=== PATIENT | female | born 1965 | race Caucasian/White ===

== ENCOUNTER 2021-02-20 15:22 | Emergency (ER) | payer MEDICAID, SELFPAY ==
[2021-02-20 15:32] VITALS: BP 133/88; PULSE 108; RESP 16; TEMP 36.8; O2SAT 97; BMI 20.6
--- NOTE | 2021-02-20 15:34 | ECG_ITS ---
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 Measurements Intervals [place] Rate: 108 P: 59 AK: 151 QRS: -15 QRSD: 90 T: 51 QT: 336 QTc: 452 Interpretive Statements SINUS TACHYCARDIA POSSIBLE LEFT ATRIAL ENLARGEMENT [-0.1mV P-WAVE IN V1/V2] ABNORMAL RHYTHM ECG No previous ECG available for comparison Electronically Signed On 02-21-2021 19:53:30 RETAIL MARKETING SPECIALIST by Rene Low M.D. [id number]
--- NOTE | 2021-02-20 15:34 | XRR_ITS ---
PROCEDURE INFORMATION: Exam: XR Chest Exam date and time: 02/20/2021 3:34 PM Age: 55 years old Clinical indication: Pain; Angina pectoris; Additional info: Chest pain TECHNIQUE: Imaging protocol: XR of the chest. Views: 1 view. COMPARISON: No relevant prior studies available. FINDINGS: Lungs: Unremarkable. No consolidation. Pleural spaces: Unremarkable. No pleural effusion. No pneumothorax. Heart/Mediastinum: Unremarkable. No cardiomegaly. Bones/joints: Unremarkable. XR/XR chest 1V portable [id number] IMPRESSION: No acute findings.
--- NOTE | 2021-02-20 15:47 | CTR_ITS ---
PROCEDURE INFORMATION: Exam: CTA Chest With Contrast Exam date and time: 02/20/2021 3:47 PM Age: 55 years old Clinical indication: Sternal or substernal pain; Additional info: Chest pain/sharp pain TECHNIQUE: Imaging protocol: Computed tomographic angiography of the chest with contrast. 3D rendering (Not supervised by radiologist): MIP and/or 3D reconstructed images were created by the technologist. Radiation optimization: All CT scans at this facility use at least one of these dose optimization techniques: automated exposure control; mA and/or kV adjustment per patient size (includes targeted exams where dose is matched to clinical indication); or iterative reconstruction. Contrast material: OMNI 350; Contrast volume: 71 ml; Contrast route: INTRAVENOUS (IV); COMPARISON: CR XR chest 1V portable [id number] 02/20/2021 4:05 PM RADIATION DOSE METRICS: Total DLP (mGy-cm): 517.11 FINDINGS: Pulmonary arteries: Normal. No pulmonary emboli. Aorta: Unremarkable. No aortic aneurysm. No aortic dissection. Lungs: Bibasilar atelectasis versus minimal infiltrate. Lingular lobe 15 mm nodular density contacting the anterior pleura with some suspected internal calcifications, potentially reflecting a calcified granuloma, however, other etiologies are not excluded. Pleural spaces: See Lungs finding. Heart: Coronary artery atherosclerotic calcifications. Lymph nodes: Unremarkable. No enlarged lymph nodes. Gallbladder and bile ducts: Cholecystectomy. Bones/joints: L1 vertebral body somewhat diffusely sclerotic bony lesion, finding potentially concerning for metastatic disease, consider further evaluation with nuclear medicine bone scan. Soft tissues: Spleen mildly enlarged measuring [address]/CT angio chest PE protcl [id number] IMPRESSION: 1. Negative for pulmonary embolus. 2. Coronary artery atherosclerotic calcifications. 3. Cholecystectomy. 4. Bibasilar atelectasis versus minimal infiltrate. 5. Lingular lobe 15 mm nodular density contacting the anterior pleura with some suspected internal calcifications, potentially reflecting a calcified granuloma, however, other etiologies are not excluded. For both low risk and high risk patients, consider CT Chest at 3 months, PET/CT, or biopsy. (Reference: Leatha) 6. L1 vertebral body somewhat diffusely sclerotic bony lesion, finding potentially concerning for metastatic disease, consider further evaluation with nuclear medicine bone scan. 7. Spleen mildly enlarged measuring 13 cm. REFERENCES: Leahta Aceves et al. Guidelines for Management of Incidental Pulmonary Nodules Detected on CT Images: From the Fleischner Society 2017. Radiology. 2017;284(1):228-243.
--- NOTE | 2021-02-20 16:02 | W.ED.GENADLT ---
HPI - General Adult General: Chief complaint: Chest Pain Stated complaint: CHEST PAIN, HEADACHE Time Seen by Provider: 02/20/21 15:34 History of Present Illness: HPI narrative: CC: Chest Pain HPI: This is a [55] yo patient w/ family hx of cardiac disease and aortic aneurysm presenting to the ED complaining of acute sharp chest pain x 3 days radiating from between the shoulder blades to the chest and abdomen. No associated with shortness of breath, chest pain or dyspnea on exertion. Pain is not tearing in nature and does not radiate to the back. Pain not associated with vomiting or PO intake. Denies any recent sympathomimetic drug use. Patient denies any cough. Denies palpitations, dysphagia, diaphoresis, radiation of pain to bilateral arms, jaw. Denies F/N/V/D. Patient denies any recent immobility, surgery, unilateral leg swelling, or prior PE. Patient denies any orthopnea. Patient reported mild diarrhea x 1 day., Around the same time of the chest pain started, patient has had frontal headache. This is not worst headache of life and sudden in onset. Did not reach maximal intensity gradually. Onset: 3 days ago Duration: ongoing for the last 3 days Location: home Severity: mild/moderate Associated symptoms: Reports chest pain and headache(s); Deny dyspnea, nausea, rash, palpitations or vomiting Review of Systems Const: Denies: fever(s) or chills Eyes: Denies: change in vision ENMT: Denies: mouth pain Card: Reports: chest pain; Denies: palpitations Resp: Denies: dyspnea or non-productive cough GI: Denies: abdominal pain, nausea, vomiting or diarrhea : Denies: dysuria Musc: Denies: extremity pain Skin/Breast: Denies: rash or new lesions Neuro: Reports: headache(s); Denies: weakness in extremities Psych: Reports: other (Normal mood) Chepe/Lymph: Denies: easy bruising PFSH ED PFSH: Family History Other Aortic aneurysm CAD (coronary artery disease) Social History Smoking and tobacco status: never smoked Alcohol intake: never Substance/Drug Use: never Physical Exam Const: COMMON NORMALS: alert HENMT: COMMON NORMALS: atraumatic HEAD & SCALP: atraumatic MOUTH: moist mucous membranes not abnormal Eye: COMMON NORMALS: EOMs intact bilaterally and conjunctivae normal CONJUNCTIVA: Yes conjunctivae normal Neck/C-Spine: COMMON NORMALS: full ROM and supple Chest: OTHER: 2+ radial pulses b/l Resp: COMMON NORMALS: normal respiratory effort and clear to auscultation bilaterally AUSCULTATION: clear to auscultation bilaterally Cardio: COMMON NORMALS: regular rate RATE: regular rate GI: COMMON NORMALS: Soft to palpation and non-tender PALPATION: Yes Soft to palpation Extremity: COMMON NORMALS: full ROM Neuro: SENSORIUM/ORIENTATION: Yes alert MOTOR EXAM: 5/5 motor strength present throughout, Pronator motor function not present, No Abnormal motor strength present, No Tremors during motor activity present, No Abnormal muscle tone present and Other motor observations present (no focal motor deficits) Psych: COMMON NORMALS: speech normal SPEECH: Yes normal speech MOOD & AFFECT: Yes euthymic mood Course Vital Signs: Vital signs: Vital Signs Temperature 98.3 F 02/20/21 15:32 Pulse Rate 105 H 02/20/21 21:52 Respiratory Rate 22 H 02/20/21 21:52 Blood Pressure 186/102 02/20/21 21:52 Pulse Oximetry 96 02/20/21 21:52 MDM - General Adult MDM Narrative: Medical decision making narrative: [55]yo patient w/ family hx of cardiac and fx of aortic aneurym presenting to the ED with evaluation of new onset sharp chest pain lasting for 3 days. HDS, pulse 2+ radially bilaterally, no signs of fluid overload, AAOx3, neuro exam intact. Given History and Exam today I have no suspicion for ACS, Pneumothorax, Pneumonia, or Tamponade. Since pain is sharp and radiating from back to the front and patient has fx of aortic dissection, will evaluate for PE and aortic dissection. Headache unlike to be SAH or meningitis given presentation. Given ongoing pain, will treat today. Will defer CT brain. Workup: ECG, CXR, CBC, BMP, Troponin x 2, CTA Interventions: tylenol, IVF, benadryl, magnesium Findings: ECG: No overt evidence of STEMI, hyperacute T waves, localizable STD or T wave inversions. No evidence of Brugada?s sign, delta wave, epsilon wave, significantly prolonged QTc, or malignant arrhythmia. No Q waves. Other Labs unremarkable for emergent problems. CXR: Without PTX, PNA, or widened mediastinum Last Stress Test: never Last Heart Catheterization: never HEART Score: 3 (EKG, family hx, and age) Doubt ACS/PE or other emergent causes of chest pain. No suspicion for aortic dissection given no widened mediastinum, 2+ upper extremity pulses, or tearing pain. No suspicion for PE given no pleuritic chest pain, recent immobilization or surgery hemoptysis, or other VTE risk factors. EKG is non-ischemic. XR normal. This patient has a heart score of 3, I believe that she can be a candidate for outpatient work-up at this point time. Given patient to follow-up with cardiology for outpatient stress test and patient agrees with plan for outpatient stress. Delta troponin wnl, no active chest pain currently. Headache improved with migraine cocktail. No supsicion for SAH or meningitis at this time given well appearance, reassuring white count, CT brain negative, and no acute onset of headache. I have given patient follow up with our behavioral health case manager to be seen by outpatient Cardiology for stress test. Patient aware of a call from our behavioral health case manager to schedule for appointment(s) and verbalizes understanding of the importance of following up. Incidental findings of L1 sclerotic lesions and L lingular mass on CTA discussed extensively with patient. Patient received a copy of the CT report with the documented findings. Patient is instructed to follow up urgently with specialists. I have given patient follow up with our behavioral health case manager to be seen by Dr. Ortiz for new cancer workup. Patient aware of a call from our behavioral health case manager to schedule for appointment(s) and verbalizes understanding of the importance of following up. I have given patient follow up with our behavioral health case manager to be seen by our outpatient pulmonology for lingula lesions. Patient aware of a call from our behavioral health case manager to schedule for appointment(s) and verbalizes understanding of the importance of following up. Rx tylenol PRN prn pain Disposition: Discharge. Strict return precautions discussed with the patient with full understanding. Advised patient to follow up promptly with a primary care provider in 24-48 hrs if the patient has persistent symptoms. Given return instructions for any crushing/tearing chest pain, focal weakness, syncope or any new or concerning issues. Lab Data: Labs: Lab Results 02/20/21 02/20/21 02/20/21 15:18 15:18 15:18 WBC 7.7 10^3/uL 10^3/ uL (4.0-10.0) RBC 5.46 10^6/uL H 10 ^6/uL (4.1-5.3) Hgb 15.7 g/dL H g/dL (11.5-15.3) Hct 48.7 % H % (37.0-47.0) MCV 89.2 fl fl (81-99) MCH 28.8 pg pg (28.0-34.0) MCHC 32.2 g/dL g/dL (30.0-36.0) RDW 13.5 % % (12.1-15.1) Plt Count 248 10^3/cmm 10^3 /cmm (130-400) MPV 8.7 fL fL (7.4-10.4) Neut % (Auto) 70.4 % % Lymph % (Auto) 23.5 % % [place] % (Auto) 5.1 % % Eos % (Auto) 0.5 % % Baso % (Auto) 0.4 % % Neut # (Auto) 5.38 10^3/uL 10^3 /uL (1.8-7.7) Lymph # (Auto) 1.8 10^3/uL 10^3/ uL (0.8-4.8) [place] # (Auto) 0.4 10^3/uL 10^3/ uL (0.2-0.9) Eos # (Auto) 0.0 10^3/uL 10^3/ uL (0.0-0.8) Baso # (Auto) 0.0 10^3/uL 10^3/ uL (0.0-0.1) Nucleated RBC % (a uto) 0 % % Nucleated RBCs # 0.0 /100WBC /100W BC Sodium 134 mmol/L L mmol /L (136-145) Potassium 4.4 mmol/L mmol/L (3.5-5.1) Chloride 97 mmol/L L mmol/ L (98-107) Carbon Dioxide 24 mmol/L mmol/L (22-29) Anion Gap 17.4 (5-19) BUN 9 mg/dL mg/dL (6-20) Creatinine 0.7 mg/dL mg/dL (0.5-0.9) GFR Calculation 86.9 mL/min L mL/ min (90-130) Glucose 86 mg/dL mg/dL (65-115) Calculated Osmolal ity 276 mOsm/kg L mOs m/kg (285-295) Calcium 9.9 mg/dL mg/dL (8.5-10.5) Troponin T Baselin e 12 ng/L H ng/L (0-10) Troponin T 120 Min taisha Delta Troponin T Coronavirus 229E ( PCR) SARS-CoV-2 (PCR) 02/20/21 02/20/21 17:11 17:14 WBC RBC Hgb Hct MCV MCH MCHC RDW Plt Count MPV Neut % (Auto) Lymph % (Auto) [place] % (Auto) Eos % (Auto) Baso % (Auto) Neut # (Auto) Lymph # (Auto) [place] # (Auto) Eos # (Auto) Baso # (Auto) Nucleated RBC % (a uto) Nucleated RBCs # Sodium Potassium Chloride Carbon Dioxide Anion Gap BUN Creatinine GFR Calculation Glucose Calculated Osmolal ity Calcium Troponin T Baselin e Troponin T 120 Min taisha 11.18 ng/L H ng/L (0-10) Delta Troponin T -0.82 ABS# L ABS# (0-10) Coronavirus 229E ( PCR) Not detected (NOT DETECT) SARS-CoV-2 (PCR) Not detected (NOT DETECT) Imaging Data^: Other Imaging: Radiologist's impression: [address] [address] Scan ReportSigned Patient: No FOLEY #: [id number]: 1965Acct#:[id number]/Sex: 55 / FADM Date: 02/20/21Loc: ERRoom/Bed:Attending Dr: Ordering Provider/Ordering MD: Sara Sotelo MD Date of Service: 02/20/21 Procedure(s): CT angio chest PE protcl [id number] Accession Number(s): [id number] Report Number: [id number] PROCEDURE INFORMATION: Exam: CTA Chest With Contrast Exam date and time: 02/20/2021 3:47 PM Age: 55 years old Clinical indication: Sternal or substernal pain; Additional info: Chest pain/sharp pain TECHNIQUE: Imaging protocol: Computed tomographic angiography of the chest with contrast. 3D rendering (Not supervised by radiologist): MIP and/or 3D reconstructed images were created by the technologist. Radiation optimization: All CT scans at this facility use at least one of these dose optimization techniques: automated exposure control; mA and/or kV adjustment per patient size (includes targeted exams where dose is matched to clinical indication); or iterative reconstruction. Contrast material: OMNI 350; Contrast volume: 71 ml; Contrast route: INTRAVENOUS (IV); COMPARISON: CR XR chest 1V portable [id number] 02/20/2021 4:05 PM RADIATION DOSE METRICS: Total DLP (mGy-cm): 517.11 FINDINGS: Pulmonary arteries: Normal. No pulmonary emboli. Aorta: Unremarkable. No aortic aneurysm. No aortic dissection. Lungs: Bibasilar atelectasis versus minimal infiltrate. Lingular lobe 15 mm nodular density contacting the anterior pleura with some suspected internal calcifications, potentially reflecting a calcified granuloma, however, other etiologies are not excluded. Pleural spaces: See Lungs finding. Heart: Coronary artery atherosclerotic calcifications. Lymph nodes: Unremarkable. No enlarged lymph nodes. Gallbladder and bile ducts: Cholecystectomy. Bones/joints: L1 vertebral body somewhat diffusely sclerotic bony lesion, finding potentially concerning for metastatic disease, consider further evaluation with nuclear medicine bone scan. Soft tissues: Spleen mildly enlarged measuring [address]/CT angio chest PE protcl [id number] IMPRESSION: 1. Negative for pulmonary embolus. 2. Coronary artery atherosclerotic calcifications. 3. Cholecystectomy. 4. Bibasilar atelectasis versus minimal infiltrate. 5. Lingular lobe 15 mm nodular density contacting the anterior pleura with some suspected internal calcifications, potentially reflecting a calcified granuloma, however, other etiologies are not excluded. For both low risk and high risk patients, consider CT Chest at 3 months, PET/CT, or biopsy. (Reference: Leatha) 6. L1 vertebral body somewhat diffusely sclerotic bony lesion, finding potentially concerning for metastatic disease, consider further evaluation with nuclear medicine bone scan. 7. Spleen mildly enlarged measuring 13 cm. REFERENCES: Leatha Aceves, et al. Guidelines for Management of Incidental Pulmonary Nodules Detected on CT Images: From the Fleischner Society 2017. Radiology. 2017;284(1):228-243. Dictated By:Newton Steven MDSigned By:Newton Steven MDSigned Date/Time:02/20/21 1823DD/ 1547 [address], [place] [address]KI Scan ReportSigned Patient: No FOLEY #: [id number]: 1965Acct#:[id number]/Sex: 55 / FADM Date: 02/20/21Loc: ERRoom/Bed:Attending Dr: Ordering Provider/Ordering MD: Sara Sotelo MD Date of Service: 02/20/21 Procedure(s): CT head wo con* [id number] Accession Number(s): [id number] Report Number: [id number] PROCEDURE INFORMATION: Exam: CT Head Without Contrast Exam date and time: 02/20/2021 6:29 PM Age: 55 years old Clinical indication: Pain; Headache; Additional info: Eval for mets. SU x 3 days. TECHNIQUE: Imaging protocol: Computed tomography of the head without contrast. Radiation optimization: All CT scans at this facility use at least one of these dose optimization techniques: automated exposure control; mA and/or kV adjustment per patient size (includes targeted exams where dose is matched to clinical indication); or iterative reconstruction. COMPARISON: No relevant prior studies available. RADIATION DOSE METRICS: Total DLP (mGy-cm): 645.36 FINDINGS: Brain: Normal. No hemorrhage. Unremarkable white matter. No mass effect. Cerebral ventricles: No ventriculomegaly. Paranasal sinuses: Visualized sinuses are unremarkable. No fluid levels. Mastoid air cells: Visualized mastoid air cells are well aerated. Bones/joints: Unremarkable. No acute fracture. Soft tissues: Unremarkable. CT/CT head wo con* [id number] IMPRESSION: No acute intracranial abnormality. Dictated By:Newton Steven MDSigned By:Newton Steven MDSigned Date/Time:02/20/215DD/ [address] [place], [place] [address]MUms ReportSigned Patient: No FOLEY #: [id number]: 1965Acct#:[id number]/Sex: 55 / FADM Date: 02/20/21Loc: ERRoom/Bed:Attending Dr: Ordering Provider/Ordering MD: Sara Sotelo MD Date of Service: 02/20/21 Procedure(s): XR chest 1V portable [id number] Accession Number(s): [id number] Report Number: [id number] PROCEDURE INFORMATION: Exam: XR Chest Exam date and time: 02/20/2021 3:34 PM Age: 55 years old Clinical indication: Pain; Angina pectoris; Additional info: Chest pain TECHNIQUE: Imaging protocol: XR of the chest. Views: 1 view. COMPARISON: No relevant prior studies available. FINDINGS: Lungs: Unremarkable. No consolidation. Pleural spaces: Unremarkable. No pleural effusion. No pneumothorax. Heart/Mediastinum: Unremarkable. No cardiomegaly. Bones/joints: Unremarkable. XR/XR chest 1V portable [id number] IMPRESSION: No acute findings. Dictated By:Newton Steven MDSigned By:Newton Steven MDSigned Date/Time:02/20/21 1613DD/ 1534 Discharge Plan Discharge Patient Disposition: Home Clinical Impression: Headache, Chest pain Condition: Stable Prescriptions: New Zofran 4 mg tablet 4 mg PO TID PRN (Reason: nausea and vomiting) 4 Days Qty: 12 RF: 0 Percocet 5-325 mg tablet 1 tab PO Q8H PRN (Reason: pain) Qty: 9 RF: 0 Discharge Orders: Discharge ED (Routine); Ordered 02/20/21 Ordered By: Sara Sotelo Discharge Diet: Advance as tolerated Discharge Activity: Resume usual activity Patient Instructions: Chest Pain (ED), Acute Headache (ED) Activity Restrictions/Additional Instructions: Our behavioral health case manager will have you follow-up with a greenhouse transplanter in the next few days. You would be expected to have a phone call with our behavioral health case manager who will put you on the schedule. Our behavioral health case manager will have you follow-up with a cancer doctor in the next few days. You would be expected to have a phone call with our behavioral health case manager who will put you on the schedule. Our behavioral health case manager will have you follow-up with a milanese knitting machine operator in the next few days. You would be expected to have a phone call with our behavioral health case manager who will put you on the schedule. Here's your CT rpeort [facility] CenterHkirxogkin[address] [place], [place] [address]OE Scan ReportSigned Patient: No FOLEY #: [id number]: 1965Acct#:[id number]/Sex: 55 / FADM Date: 02/20/21Loc: ERRoom/Bed:Attending Dr: Ordering Provider/Ordering MD: Sara Sotelo MD Date of Service: 02/20/21 Procedure(s): CT angio chest PE protcl [id number] Accession Number(s): [id number] Report Number: [id number] PROCEDURE INFORMATION: Exam: CTA Chest With Contrast Exam date and time: 02/20/2021 3:47 PM Age: 55 years old Clinical indication: Sternal or substernal pain; Additional info: Chest pain/sharp pain TECHNIQUE: Imaging protocol: Computed tomographic angiography of the chest with contrast. 3D rendering (Not supervised by radiologist): MIP and/or 3D reconstructed images were created by the technologist. Radiation optimization: All CT scans at this facility use at least one of these dose optimization techniques: automated exposure control; mA and/or kV adjustment per patient size (includes targeted exams where dose is matched to clinical indication); or iterative reconstruction. Contrast material: OMNI 350; Contrast volume: 71 ml; Contrast route: INTRAVENOUS (IV); COMPARISON: CR XR chest 1V portable [id number] 02/20/2021 4:05 PM RADIATION DOSE METRICS: Total DLP (mGy-cm): 517.11 FINDINGS: Pulmonary arteries: Normal. No pulmonary emboli. Aorta: Unremarkable. No aortic aneurysm. No aortic dissection. Lungs: Bibasilar atelectasis versus minimal infiltrate. Lingular lobe 15 mm nodular density contacting the anterior pleura with some suspected internal calcifications, potentially reflecting a calcified granuloma, however, other etiologies are not excluded. Pleural spaces: See Lungs finding. Heart: Coronary artery atherosclerotic calcifications. Lymph nodes: Unremarkable. No enlarged lymph nodes. Gallbladder and bile ducts: Cholecystectomy. Bones/joints: L1 vertebral body somewhat diffusely sclerotic bony lesion, finding potentially concerning for metastatic disease, consider further evaluation with nuclear medicine bone scan. Soft tissues: Spleen mildly enlarged measuring [address]/CT angio chest PE protcl [id number] IMPRESSION: 1. Negative for pulmonary embolus. 2. Coronary artery atherosclerotic calcifications. 3. Cholecystectomy. 4. Bibasilar atelectasis versus minimal infiltrate. 5. Lingular lobe 15 mm nodular density contacting the anterior pleura with some suspected internal calcifications, potentially reflecting a calcified granuloma, however, other etiologies are not excluded. For both low risk and high risk patients, consider CT Chest at 3 months, PET/CT, or biopsy. (Reference: Leatha) 6. L1 vertebral body somewhat diffusely sclerotic bony lesion, finding potentially concerning for metastatic disease, consider further evaluation with nuclear medicine bone scan. 7. Spleen mildly enlarged measuring 13 cm. REFERENCES: Leatha H, et al. Guidelines for Management of Incidental Pulmonary Nodules Detected on CT Images: From the Fleischner Society 2017. Radiology. 2017;284(1):228-243. Dictated By:Newton Steven MDSigned By:Newton Steven MDSigned Date/Time:02/20/21 1823DD/ 1547 Coding Level of Care Code ED Bereavement Counselor for Chg Fwd Exam Comprehensive
[2021-02-20 16:24] LABS: Basophils % 0.4 %; Eosinophils % 0.5 %; Hematocrit 48.7 % (37.0-47.0); Hemoglobin 15.7 g/dL (11.5-15.3); Lymphocytes # 1.8 10^3/uL (0.8-4.8); Lymphocytes % 23.5 %; Mean Corpuscular HGB Conc 32.2 g/dL (30.0-36.0); Mean Corpuscular Hemoglobin 28.8 pg (28.0-34.0); Mean Corpuscular Volume 89.2 fl (81-99); Mean Platelet Volume 8.7 fL (7.4-10.4); Monocytes # 0.4 10^3/uL (0.2-0.9); Monocytes % 5.1 %; Neutrophils # 5.38 10^3/uL (1.8-7.7); Neutrophils % 70.4 %; Nucleated Red Blood Cells % 0 %; Platelet Count 248 10^3/cmm (130-400); Red Blood Count 5.46 10^6/uL (4.1-5.3); Red Cell Distribution Width 13.5 % (12.1-15.1); White Blood Count 7.7 10^3/uL (4.0-10.0)
[2021-02-20 16:56] LABS: Anion Gap 17.4 (5-19); Blood Urea Nitrogen 9 mg/dL (6-20); Calcium 9.9 mg/dL (8.5-10.5); Carbon Dioxide 24 mmol/L (22-29); Chloride 97 mmol/L (98-107); Glomerular Filtration Rate 86.9 mL/min (90-130); Glucose 86 mg/dL (65-115); Osmolality Calculated 276 mOsm/kg (285-295); Potassium 4.4 mmol/L (3.5-5.1); Sodium 134 mmol/L (136-145)
[2021-02-20 17:04] LABS: Slide Review Slide Review Perform
[2021-02-20 17:20] LABS: Troponin(5th) Baseline 12 ng/L (0-10)
[2021-02-20] MEDS: sodium chloride 0.9% 1,000 ML 999 ML IV ×2 (17:44)
[2021-02-20] MEDS: ondansetron 2 mg/ML SDV 2 mL 4 MG IVP (17:44)
[2021-02-20] MEDS: diphenhydrAMINE 50 mg/mL SDV 1mL IVP (17:44)
[2021-02-20] MEDS: morphine 4 mg/mL SDV 1 mL 2 MG IVP (17:45)
[2021-02-20] MEDS: magnesium sulfate premix 2 GM/50 ML PIGGYBACK IV (17:45)
[2021-02-20] MEDS: iohexol 350 mg/mL 100 mL Btl IV (18:11)
--- NOTE | 2021-02-20 18:29 | CTR_ITS ---
PROCEDURE INFORMATION: Exam: CT Head Without Contrast Exam date and time: 02/20/2021 6:29 PM Age: 55 years old Clinical indication: Pain; Headache; Additional info: Eval for mets. SU x 3 days. TECHNIQUE: Imaging protocol: Computed tomography of the head without contrast. Radiation optimization: All CT scans at this facility use at least one of these dose optimization techniques: automated exposure control; mA and/or kV adjustment per patient size (includes targeted exams where dose is matched to clinical indication); or iterative reconstruction. COMPARISON: No relevant prior studies available. RADIATION DOSE METRICS: Total DLP (mGy-cm): 645.36 FINDINGS: Brain: Normal. No hemorrhage. Unremarkable white matter. No mass effect. Cerebral ventricles: No ventriculomegaly. Paranasal sinuses: Visualized sinuses are unremarkable. No fluid levels. Mastoid air cells: Visualized mastoid air cells are well aerated. Bones/joints: Unremarkable. No acute fracture. Soft tissues: Unremarkable. CT/CT head wo con* [id number] IMPRESSION: No acute intracranial abnormality.
[2021-02-20 19:16] LABS: Adenovirus Not Detected (NOT DETECT); Chlamydia Pneumoniae Not Detected (NOT DETECT); Coronavirus 229E,HKU1,NL63,OC4 Not Detected (NOT DETECT); Human Metapneumovirus Not Detected (NOT DETECT); Human Rhinovirus/Enterovirus Not Detected (NOT DETECT); Influenza A Not Detected (NOT DETECT); Influenza A H1 Not Detected (NOT DETECT); Influenza A H1-2009 Not Detected (NOT DETECT); Influenza A H3 Not Detected (NOT DETECT); Influenza B Not Detected (NOT DETECT); Mycoplasma Pneumoniae Not Detected (NOT DETECT); Parainfluenza Virus Type 1 Not Detected (NOT DETECT); Parainfluenza Virus Type 2 Not Detected (NOT DETECT); Parainfluenza Virus Type 3 Not Detected (NOT DETECT); Parainfluenza Virus Type 4 Not Detected (NOT DETECT); Respiratory Syncytial Virus A Not Detected (NOT DETECT); Respiratory Syncytial Virus B Not Detected (NOT DETECT); SARS-COV-2 Not Detected (NOT DETECT)
[2021-02-20 19:37] VITALS: BP 168/108; RESP 20; O2SAT 96
[2021-02-20 20:14] LABS: Troponin 5 2HR 11.18 ng/L (0-10); Troponin 5 2HR Delta -0.82 ABS# (0-10)
[2021-02-20 20:30] VITALS: BP 186/102; PULSE 105; RESP 22; O2SAT 96
[2021-02-20] MEDS: ketorolac 30 mg/mL INJ IVP (21:40)
[2021-02-20 21:52] VITALS: BP 186/102; PULSE 105; RESP 22; O2SAT 96
--- NOTE | 2021-02-22 15:35 | DCPLANNER ---
manager medicaid had message to schedule an out patient stress test for patient. manager medicaid needed to speak with patient due to not having a primary care physician listed in chart. manager medicaid was unable to speak with patient due to no phone number for patient in chart.
--- NOTE | 2021-02-22 15:43 | DCPLANNER ---
Addendum entered by Chiara Desai 02/26/21 06:21: bed manager also had message to refer patient with [facility]. bed manager unable to make referral due to not having a phone number or an address for patient in chart. Original Note: Case manger had message to refer patient Dr. Ortiz for possible new cancer patient. bed manager cannot make referral due to not having a phone number or address in the chart.
--- NOTE | 2021-02-28 14:35 | DCPLANNER ---
Patient called shoe parts caser stating that she did not have a phone number in her chart, and gave shoe parts caser phone number. locker room manager called patient, asking if she still wanted the referrals for primary care physician, and pulmonology, and cancer treatment center. Patient stated that she did. locker room manager called [facility], spoke with Mariaelena, gave clinic patients information. A follow up appointment was scheduled for Friday, March 05, 2021 at 9:[address] Leung. locker room manager called patient and gave her the appointment information. locker room manager called [facility], spoke with Shavonne, gave clinic patients information. A follow up appointment was scheduled for Tuesday, March 16, 2021 at 10:[address] Kemp, pulmonology. locker room manager called patient and gave her the appointment information. locker room manager also called Blanca, breastfeeding program coordinator, [facility], gave clinic patients information. locker room manager was told that patients information would be watched for and an appointment would be scheduled for patient. locker room manager did call patient and let her know that the Cancer Treatment would call patient with appointment information.
== END 2021-02-20 21:58 | disposition home or self-care (01) ==
LOC: ER 17:49
PROVIDERS: Emergency Provider Emergency Medicine
DX: R07.9 Chest pain, unspecified (principal); R51.9 Headache, unspecified; Z20.822 Contact with and (suspected) exposure to COVID-19
CPT/HCPCS: 36415; 70450; 71045; 71275; 80048; 84484; 85025; 87635; 93005; 96361; 96365; 96375; 99284; J1200; J1885; J2270; J2405; J3475; J7030; Q9967

== ENCOUNTER → 2021-05-08 15:13 | Outpatient (BNVA) | payer BC, SELFPAY | PROVIDERS: PCP Family Medicine Adult Medicine; Visit Provider Family Medicine Adult Medicine | DX: R63.4 Abnormal weight loss (principal); F41.9 Anxiety disorder, unspecified; F32.A Depression, unspecified; R11.0 Nausea; R91.1 Solitary pulmonary nodule | CPT/HCPCS: 84443 ==

== ENCOUNTER 2021-07-13 10:59 | Outpatient (CLI) | payer BC, SELFPAY ==
--- NOTE | 2021-07-13 15:06 | CT_ITS ---
WS: [id number] CT CHEST WITHOUT INTRAVENOUS CONTRAST HISTORY: f/u lung nodules TECHNIQUE: Contiguous 5 mm axial imaging performed on the thorax. Coronal and sagittal reformats are submitted. All CT scans at [facility] use at least one of these dose optimization techniques: automated exposure control; mA and/or kV adjustment per patient size (includes targeted exams where dose is matched to clinical indication); or iterative reconstruction. CONTRAST: None DLP: 471.41 mGy-cm. COMPARISON: 02/20/2021 and PET/CT 03/29/2021 Lungs and central airway: Previously described PET/CT positive activity in the RIGHT lung has resolve d. There is no corresponding abnormality on today's examination. The lungs are hyperinflated and ther e are a few additional areas of subsolid opacification and a few subcentimeter nodules which are all probably stable. Pleura: Normal. No pleural effusion. Heart and pericardium: Normal size heart with no pericardial effusion. Mediastinum and randy: Mediastinum and randy are difficult to evaluate without IV contrast but no gross ly enlarged or enlarging lymph nodes are appreciated. Vessels: Very minimal atherosclerosis aorta. Normal size pulmonary artery. Chest wall and lower neck: No soft tissue masses. Upper abdomen: Prior cholecystectomy. Visualized unenhanced liver and spleen are negative. No adrenal mass. Osseous structures: Moderate spondylosis thoracic spine. Heterogeneity within the L1 vertebral body. Sclerotic and lytic changes in the lumbar L1 vertebral body are very similar to the prior study from 02/20/2021. May be from treated bone lesion. Patient does describe a history of cancer within her back . No additional history. CT/CT chest wo con [id number] IMPRESSION: 1. Interval resolution of the recently described PET/CT positive infiltrate in the RIGHT lung consistent with pneumonia. 2. Additional, bilateral areas of subsolid attenuation and subcentimeter nodul es. Recommend follow-up chest CT in 6 months. 3. Chronic emphysema.
== END 2021-07-13 11:00 | disposition home or self-care (01) ==
PROVIDERS: PCP Family Medicine Adult Medicine; Visit Provider Internal Medicine Pulmonary Disease
DX: J18.9 Pneumonia, unspecified organism (principal); R63.4 Abnormal weight loss; R91.8 Other nonspecific abnormal finding of lung field; J43.9 Emphysema, unspecified
CPT/HCPCS: 71250

== ENCOUNTER 2021-07-27 11:06 | Outpatient (CLI) | payer BC, SELFPAY ==
--- NOTE | 2021-07-27 11:16 | MM_ITS ---
WS: [id number] SCREENING DIGITAL BREAST TOMOSYNTHESIS MAMMOGRAM WITH CAD HISTORY: SCREEN COMPARISON: None available. Bilateral CC and MLO with tomosynthesis views submitted. Synthetic mammography reviewed. Computer aid ed detection analyzed. Breast composition: There are scattered areas of fibroglandular density. No suspicious masses, microc alcifications or architectural distortion. MM/[place] [id number] IMPRESSION: BI-RADS: 1-Negative FOLLOW UP: 1 Year Follow-up
== END 2021-07-27 11:07 | disposition home or self-care (01) ==
PROVIDERS: PCP Family Medicine Adult Medicine; Visit Provider Family Medicine Adult Medicine
DX: Z12.31 Encounter for screening mammogram for malignant neoplasm of breast (principal)
CPT/HCPCS: 77063; 77067

== ENCOUNTER 2021-09-13 10:02 | Outpatient (CLI) | payer BC, SELFPAY ==
--- NOTE | 2021-09-13 13:04 | PFTS_ITS ---
Date of Study:09/13/21 Date of Dictation: MECHANICS: Forced vital capacity (FVC) is normal. Forced expiratory volume in one second (FEV1) is normal. FEV1/FVC is normal. FLOW VOLUME LOOP: There is some flattening of the inspiratory limb of the flow volume loop which could be suggestive of variable extrathoracic airflow obstruction. LUNG VOLUMES: Total lung capacity (TLC) is normal. Residual volume (RV) is increased. DIFFUSING CAPACITY FOR CARBON MONOXIDE: Not measured. INTERPRETATION: The prebronchodilator spirometry is normal. No postbronchodilator spirometry was performed. Lung volumes are consistent with air trapping. Gas exchange (DLCO) was not measured. MTDD
== END 2021-09-13 10:03 | disposition home or self-care (01) ==
PROVIDERS: PCP Family Medicine Adult Medicine; Visit Provider Internal Medicine Pulmonary Disease
DX: J44.9 Chronic obstructive pulmonary disease, unspecified (principal); R91.1 Solitary pulmonary nodule
CPT/HCPCS: 94010; 94618; 94726

== ENCOUNTER 2021-09-19 06:00 | Day surgery (SDC) | payer BC, SELFPAY | END 2021-09-19 06:01 | disposition home or self-care (01) | LOC: GILAB 12-06 07:21 | PROVIDERS: PCP Family Medicine Adult Medicine; Visit Provider Surgery | DX: R63.4 Abnormal weight loss (principal) | CPT/HCPCS: J2704 ==

== ENCOUNTER 2021-09-19 07:58 | Day surgery (SDC) | payer BC, SELFPAY ==
[2021-09-18 09:48] VITALS: BMI 16.8
[2021-09-19 08:20] VITALS: BP 122/82; PULSE 96; RESP 18; TEMP 36.1; O2SAT 100
[2021-09-19] MEDS: sodium chloride 0.9% 1,000 ML 30 ML IV (08:30)
--- NOTE | 2021-09-19 09:10 | ANES.PREANE2 ---
Pre-Anesthetic Assessment Height/Weight: Height 1.65 m Weight 45.813 kg Temp Pulse Resp BP Pulse Ox O2 Del Method 97 F L 96 18 122/82 100 09/19/21 08:20 09/19/21 08:20 09/19/21 08:20 09/19/21 08:20 09/19/21 08:20 09/19/21 08:20 Preop Diagnosis: diagnostic Operation Date: 09/19/21 09:15 Proposed Procedures p EGD 52123, 09332, R63.4(Not Applicable) - Chandu Pandey MD s Colonoscopy(Not Applicable) - Chandu Pandey MD Familial anesthetic complications: hard to wake up Was Beta Jumana taken within 24 hours: N/A Was Clonidine taken within 24 hours: N/A Last intake: Intake Last Liquid Date 09/18/21 Last Liquid Time 23:30 Last Solid Date 09/16/21 Last Solid Time 00:00 Last Intake: 23:30 Social Tobacco 0.5ppd pack(s) per day 20+ pack years Exam alert, oriented x 3, clear to auscultation bilaterally and regular rate & rhythm Airway Submandibular: within normal limits Cervical ROM: within normal limits Mallampati: Class II Dentition: full (chipped front upper) Pulmonary Chronic Obstructive Pulmonary Disease, Cough, Exertional Dyspnea and Shortness of Breath lung nodule CV/HEM None reported None reported Hepatic None reported GI Gastroesophageal Reflux Disease Metabolic None reported Musc/skel Lower Back Pain (tumor L1) and Osteoarthritis/DJD Neuropsych Anxiety and Depression Anesthetic Plan ASA status: 3 Anesthesia: MAC Medications/Allergies Home Medications Medication Instructions Recorded Confirmed Last Taken Type albuterol sulfate 90 mcg/actuation 2 puff inhalation Q6H PRN 04/03/21 09/19/21 09/18/21 Rx aerosol inhaler shortness of breath or wheezing #17 grams ondansetron 4 mg disintegrating 4 mg PO Q6H PRN nausea and 04/03/21 09/19/21 09/17/21 Rx tablet vomiting #90 tabs budesonide-formoterol HFA 160 2 puff inhalation BID #10.2 grams 07/10/21 09/19/21 09/18/21 Rx mcg-4.5 mcg/actuation aerosol inhaler (Symbicort) celecoxib 200 mg capsule 200 mg PO BID #60 caps 08/07/21 09/19/2109/18/22 Rx hydroxyzine HCl 50 mg tablet 50 mg PO TID PRN anxiety #90 tabs 08/07/21 09/19/21 09/18/21 Rx Allergies Allergy/AdvReac Type Severity Reaction Status Date / Time No Known Allergies Allergy Verified 09/18/21 09:47 Current Medications Generic Name Dose Route Start Last Admin Trade Name Freq PRN Reason Stop Dose Admin Sodium Chloride 1,000 mls @ 30 mls/hr 09/19/21 08:15 09/19/21 08:30 Sodium Chloride 0.9% IV 09/20/21 08:14 30 mls/hr .Q24H TAMMY Administration PFSH Anesthesia Medical History 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 Anxiety and depression Incidental lung nodule Mid back pain, chronic Pneumonia Quit smoking Surgical History History of hysterectomy History of tonsillectomy Status post colonoscopy Family History Other Aortic aneurysm CAD (coronary artery disease) Social History Smoking and tobacco status: current every day smoker cigarettes Packs smoked per day: 1 Years cigarettes smoked: 23 Alcohol intake: never Adopted: Yes (by grandparents) Lives independently: Yes Household members: none Housing: House Marital status: Legally Number of children: 0 Number of grandchildren: 0 Highest education level completed: Some College, No Degree service: No Current occupational status: other 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
[2021-09-19 09:45] VITALS: BP 111/72; PULSE 95; RESP 18; TEMP 36.3; O2SAT 99
--- NOTE | 2021-09-19 09:47 | P.HP_ITS ---
Same Day Surgery H&P Indication for Procedure/HPI DATE OF PROCEDURE: September 19, 2021 CHIEF COMPLAINT/INDICATIONFOR SURGICAL PROCEDURE: egd/colon PREOP DIAGNOSIS: diagnostic PLANNED PROCEDURE: Operation Date: 09/19/21 09:15 Proposed Procedures p EGD 08501, [id number], R63.4(Not Applicable) - Chandu Pandey MD s Colonoscopy(Not Applicable) - Chandu Pandey MD Medications/Allergies* Allergies/Adverse Reactions Allergy/AdvReac Type Severity Reaction Status Date / Time No Known Allergies Allergy Verified 09/18/21 09:47 Current Medications: Generic Name Dose Route Start Last Admin Trade Name Freq PRN Reason Stop Dose Admin Sodium Chloride 1,000 mls @ 30 mls/hr 09/19/21 08:15 09/19/21 08:30 Sodium Chloride 0.9% IV 09/20/21 08:14 30 mls/hr .Q24H TAMMY Administration Pertinent History/Comorbid Conditions* Medical History 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 Anxiety and depression Incidental lung nodule Mid back pain, chronic Pneumonia Quit smoking Surgical History (Updated 05/28/21 @ 15:43 by Chandu Pandey MD) History of hysterectomy History of tonsillectomy Status post colonoscopy Family History (Updated 02/20/21 @ 16:03 by Sara Sotelo MD) CAD (coronary artery disease) Aortic aneurysm Social History Smoking and tobacco status: current every day smoker cigarettes Packs smoked per day: 1 Years cigarettes smoked: 23 Alcohol intake: never Adopted: Yes (by grandparents) Lives independently: Yes Household members: none Housing: House Marital status: Legally Number of children: 0 Number of grandchildren: 0 Highest education level completed: Some College, No Degree service: No Current occupational status: other 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
[2021-09-19] MEDS: ondansetron 2 mg/ML SDV 2 mL 4 MG IVP (10:15)
[2021-09-19 10:27] VITALS: BP 126/89; PULSE 86; RESP 18; O2SAT 100
--- NOTE | 2021-09-19 17:54 | ANE.PACU2 ---
Inpatient post-anesthesia follow up: Airway intact: Yes Vital signs: Temperature 97.3 F Pulse Rate 86 Respiratory Rate 18 Blood Pressure 126/89 Pulse Oximetry 100 Oxygen Delivery Me thod Room Air Oxygen Flow Rate 3 Fraction of Inspir ed Oxygen Hydration adequate: Yes Nausea and vomiting: No Pain level: 1 Mental status: Baseline
== END 2021-09-19 10:36 | disposition home or self-care (01) ==
PROVIDERS: PCP Family Medicine Adult Medicine; Visit Provider Surgery
PROC: 0DJ08ZZ Inspection of Upper Intestinal Tract, Via Natural or Artificial Opening Endoscopic (ICD-10-PCS; CPT 43235; principal; 2021-09-19 09:15)
PROC: 0DJD8ZZ Inspection of Lower Intestinal Tract, Via Natural or Artificial Opening Endoscopic (ICD-10-PCS; CPT 45330; 2021-09-19 09:15)
DX: R63.4 Abnormal weight loss (principal); Z68.1 Body mass index [BMI] 19.9 or less, adult; J44.9 Chronic obstructive pulmonary disease, unspecified; K21.9 Gastro-esophageal reflux disease without esophagitis; F17.210 Nicotine dependence, cigarettes, uncomplicated
CPT/HCPCS: 43235; 45330; 96374; J2405; J7030

== ENCOUNTER 2021-11-13 10:20 | Outpatient (CLI) | payer BC, SELFPAY ==
[2021-11-13] MEDS: iohexol 350 mg/mL 100 mL Btl IV (11:45)
[2021-11-13] MEDS: iohexol 350 mg/mL 100 mL Btl PO (11:45)
--- NOTE | 2021-11-13 12:30 | CT_ITS ---
WS: [id number] CT ABDOMEN AND PELVIS WITH CONTRAST HISTORY: R63.4 - Abnormal weight loss TECHNIQUE: Imaging performed of the abdomen and pelvis with IV contrast. Single phase imaging of the abdomen. Coronal and sagittal reformats are submitted. All CT scans at [facility] use at [address] one of these dose optimization techniques: automated exposure control; mA and/or kV adjustment per patient size (includes targeted exams where dose is matched to clinical indication); or iterative re construction. IV CONTRAST: Omnipaque 350; 95 mL IV. Oral contrast: No DLP: 791.24 mGy.cm COMPARISON: None available. Lower thorax: Lung bases are clear. Heart is normal size. No hiatal hernia. Liver/biliary system: Normal size with no intrahepatic dilatation. Gallbladder: Status post cholecystectomy. Pancreas: Normal size pancreas and pancreatic duct. No adjacent inflammation. Spleen: Top normal size at 12.0 cm in length. No mass. Adrenal glands: Normal. Right kidney: Normal. Left kidney: Cortical cyst upper pole measures 8 mm. No solid mass or obstruction. Aorta: Mild atherosclerosis with no aneurysm. Lymphadenopathy: None. Free fluid: None. GI tract: Stomach is well-distended with oral contrast. No small bowel obstruction. There is mild wal l thickening within the small bowel in the LEFT abdomen. There is mild central tethering of small bow el loops in the pelvis. No mass identified. Appendix is normal. There is extensive diffuse constipati on throughout the colon. Abdominal wall: Unremarkable abdominal wall. No hernia. Pelvis: Fecal retention towards the rectum. No free fluid or adenopathy. Prior hysterectomy. Bones: L4 anterolisthesis by 7 mm. L5 bilateral pars defects. Mild anterior wedging of L1. Sclerotic changes within the femoral heads bilaterally, RIGHT greater than LEFT. Mixed lytic and sclerotic lesi ons throughout the LEFT ilium. Mild sclerosis along the RIGHT SI joint. Abnormal signal in T12 may be hemangioma. CT/CT abdomen pelvis w con* [id number] IMPRESSION: 1. Abnormal mixed lytic and sclerotic changes within the LEFT ilium and to a l zofia extent on the SI joint and bilaterally in the hips. Thought to be related to osteonecrosis on a prior PET/CT. Extensive changes within the LEFT ilium ne ed further evaluation. Bone scan imaging may be very helpful to exclude metasta tic disease. No prior studies. Abnormal density in T12 may be due to a hemangio ma but metastatic disease is not excluded. 2. Prior cholecystectomy and hysterectomy. 3. Diffuse constipation. 4. There is mild small bowel wall thickening. This can be seen with inflammato ry/infectious or lymphoma. No ascites or adenopathy identified.
== END 2021-11-13 10:21 | disposition home or self-care (01) ==
LOC: RAD 10:22
PROVIDERS: PCP Family Medicine Adult Medicine; Visit Provider Surgery
DX: R63.4 Abnormal weight loss (principal); K59.00 Constipation, unspecified; Z90.710 Acquired absence of both cervix and uterus; Z90.49 Acquired absence of other specified parts of digestive tract
CPT/HCPCS: 74177

== ENCOUNTER 2021-12-25 07:43 | Outpatient (CLI) | payer BC, SELFPAY ==
--- NOTE | 2021-12-25 07:58 | NM_ITS ---
WS: [id number] NUCLEAR MEDICINE BONE SCAN Radiopharmaceutical: 18.6 Tc-99m MDP mCi IV Injection site: antecubital Postinjection imaging delay: 1 hr CLINICAL INFORMATION: abnormal illiac bone COMPARISON: PET/CT March 29, 2021 FINDINGS: Bone lesions: Diffuse bony uptake in the LEFT ilium adjacent to the sacroiliac joint corresponds to t he previously described bony lesion. In addition, bony uptake involving the T12 vertebral body more p rominent involving the posterior elements. Findings are nonspecific but metastatic disease should be excluded. Persistent activity in the RIGHT greater than LEFT femoral heads previously felt to be due to avascul ar necrosis, extends into the femoral necks bilaterally. Soft tissue contours: Normal. Kidneys: Normal. Other findings: None. NM/NM bone scan whole body* [id number] IMPRESSION: 1. Radiotracer uptake involving the LEFT ilium adjacent to sacroiliac joint an d T12 vertebral body nonspecific but metastatic disease not excluded. Consider CT-guided biopsy of the LEFT ilium for more definitive evaluation. 2. Previously described activity in the RIGHT greater than LEFT femoral head a nd necks previously described as avascular necrosis but technically indetermina nt and metastatic disease not entirely excluded. 3. Findings similar to the PET/CT March 29, 2021
== END 2021-12-25 07:44 | disposition home or self-care (01) ==
PROVIDERS: PCP Family Medicine Adult Medicine; Visit Provider Family Medicine Adult Medicine
DX: M87.9 Osteonecrosis, unspecified (principal)
CPT/HCPCS: 78306; A9561

== ENCOUNTER 2021-12-26 07:55 | Day surgery (SDC) | payer BC, SELFPAY ==
[2021-12-25 11:42] VITALS: BMI 16.9
[2021-12-26 08:23] VITALS: BP 152/102; PULSE 95; RESP 18; TEMP 36.1; O2SAT 98
[2021-12-26] MEDS: sodium chloride 0.9% 1,000 ML 30 ML IV (08:25)
--- NOTE | 2021-12-26 08:49 | ANES.PREANE2 ---
Pre-Anesthetic Assessment Height/Weight: Height 1.65 m Weight 46.266 kg Temp Pulse Resp BP Pulse Ox O2 Del Method 96.9 F L 95 18 152/102 98 12/26/21 08:23 12/26/21 08:23 12/26/21 08:23 12/26/21 08:23 12/26/21 08:23 12/26/21 08:23 Preop Diagnosis: Abdominal pain Operation Date: 12/26/21 09:30 Proposed Procedures p Colonoscopy /EGD 02585 [id number] R63.4.R11.0(Not Applicable) - Bry Jarvis MD s EGD(Not Applicable) - Bry Jarvis MD Familial anesthetic complications: Hard time to wake up Was Beta Jumana taken within 24 hours: N/A Was Clonidine taken within 24 hours: N/A Last intake: Intake Last Liquid Date 12/25/21 Last Liquid Time 22:00 Last Solid Date 12/25/21 Last Solid Time 09:30 Social Tobacco (Smokes marijuana daily) and No alcohol 0.5 pack(s) per day Exam alert, oriented x 3, clear to auscultation bilaterally and regular rate & rhythm Airway Submandibular: within normal limits Cervical ROM: Other (Decreased ROM) Mallampati: Class II Dentition: chipped, loose and partials Comments: Comments: Chipped teeth in front History/ROS No significant history except as noted and No significant complaints Pulmonary Chronic Obstructive Pulmonary Disease, Cough and Exertional Dyspnea Nodules on lungs CV/HEM None reported Cyst on left kidney Hepatic None reported GI Gastroesophageal Reflux Disease (None this AM) Mass in stomach on posterior wall from last scope Metabolic None reported Musc/skel Lower Back Pain (Tumor L1 ) Avascular necrosis Neuropsych Seizure (Stress related) Anesthetic Plan ASA status: 3 Anesthesia: Anesthesia Evaluation, General and MAC Risk of > 500 ml blood loss (7ml/kg in children): No Medications/Allergies Home Medications Medication Instructions Recorded Confirmed Last Taken Type budesonide 160 mcg-glycopyr 9 2 inh inhalation BID #10.7 grams 10/17/21 12/26/21 12/25/21 Rx mcg-formot 4.8 mcg/actuation HFA inhaler (Breztri Aerosphere) ipratropium 0.5 mg-albuterol 3 mg 3 ml inhalation Q4H PRN wheezing 10/17/21 12/26/2122 Rx (2.5 mg base)/3 mL nebulization #90 mL soln albuterol sulfate 90 mcg/actuation 2 puff inhalation Q6H PRN 10/25/21 12/26/21 12/25/21 Rx aerosol inhaler shortness of breath or wheezing #17 grams hydroxyzine HCl 50 mg tablet 50 mg PO TID PRN anxiety #90 tabs 10/25/21 12/26/21 12/25/21 Rx ondansetron 4 mg disintegrating 4 mg PO Q6H PRN nausea and 11/22/21 12/26/21 12/26/21 Rx tablet vomiting #90 tabs nebulizers #1 ea 12/04/21 12/26/21 12/25/21 Rx metoclopramide HCl 10 mg tablet 10 mg PO Q6H PRN nausea and 12/13/21 12/26/21 12/25/21 Rx (Reglan) vomiting #120 tabs pantoprazole 40 mg tablet,delayed 40 mg PO BID PRN nausea and 12/13/21 12/26/21 12/25/21 Rx release vomiting #60 tabs tramadol 50 mg tablet 50 mg PO Q8H PRN pain 30 days #60 12/21/21 12/26/21 12/25/21 Rx tabs Allergies Allergy/AdvReac Type Severity Reaction Status Date / Time No Known Allergies Allergy Verified 12/26/21 08:22 Current Medications Generic Name Dose Route Start Last Admin Trade Name Freq PRN Reason Stop Dose Admin Sodium Chloride 1,000 mls @ 30 mls/hr 12/26/21 08:30 12/26/21 08:25 Sodium Chloride 0.9% IV 30 mls/hr .Q24H TAMMY Administration PFSH Anesthesia Medical History (Updated 12/21/21 @ 16:21 by Gabriel Leung MD) 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 Anxiety and depression Bone necrosis Gastric mass Greenstick mass on the posterior wall of the stomach on EGD by Dr. Pandey 09/19/[address] of the abdomen pelvis with p.o. and IV contrast ordered GERD (gastroesophageal reflux disease) Incidental lung nodule Mid back pain, chronic Surgical History History of hysterectomy History of tonsillectomy Status post colonoscopy Family History Other Aortic aneurysm CAD (coronary artery disease) Social History Smoking and tobacco status: current every day smoker cigarettes Packs smoked per day: 1 Years cigarettes smoked: 23 Alcohol intake: never Adopted: Yes (by grandparents) Lives independently: Yes Household members: none Housing: House Marital status: Legally Number of children: 0 Number of grandchildren: 0 Highest education level completed: Some College, No Degree service: No Current occupational status: other 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
--- NOTE | 2021-12-26 10:06 | W.PM.OPSUD ---
Surgery/Procedure H&P Update DATE OF PROCEDURE: December 26, 2021 DATE H&P PERFORMED: 12/19/21 H&P UPDATE INFORMATION: I have reviewed H&P completed within last 30 days, I have examined patient prior to procedure and No changes to prior documentation PREOP DIAGNOSIS: Abdominal pain PRIMARY INDICATION FOR PROCEDURE: The same PLANNED PROCEDURE: Operation Date: 12/26/21 09:30 Proposed Procedures p Colonoscopy /EGD [id number] R63.4.R11.0(Not Applicable) - Bry Jarvis MD s EGD(Not Applicable) - Bry Jarvis MD
[2021-12-26 11:13] VITALS: BP 109/64; PULSE 97; RESP 16; TEMP 36.1; O2SAT 97
[2021-12-26 11:18] VITALS: BP 114/68; PULSE 96; RESP 16; O2SAT 96
[2021-12-26 11:28] VITALS: BP 107/75; PULSE 93; RESP 18; O2SAT 96
--- NOTE | 2021-12-26 14:42 | ANE.PACU2 ---
Inpatient post-anesthesia follow up: Airway intact: Yes Vital signs: Temperature 97.0 F Pulse Rate 93 Respiratory Rate 18 Blood Pressure 107/75 Pulse Oximetry 96 Oxygen Delivery Me thod Room Air Oxygen Flow Rate Fraction of Inspir ed Oxygen Hydration adequate: Yes Nausea and vomiting: No Pain level: 1 Mental status: Baseline
== END 2021-12-26 11:55 | disposition home or self-care (01) ==
PROVIDERS: PCP Family Medicine Adult Medicine; Visit Provider Surgery
PROC: 0DJ08ZZ Inspection of Upper Intestinal Tract, Via Natural or Artificial Opening Endoscopic (ICD-10-PCS; CPT 43235; 2021-12-26 09:30)
PROC: 0DJD8ZZ Inspection of Lower Intestinal Tract, Via Natural or Artificial Opening Endoscopic (ICD-10-PCS; CPT 45330; 2021-12-26 09:30)
DX: R11.0 Nausea (principal); R63.4 Abnormal weight loss; K21.00 Gastro-esophageal reflux disease with esophagitis, without bleeding; K29.50 Unspecified chronic gastritis without bleeding; B96.81 Helicobacter pylori [H. pylori] as the cause of diseases classified elsewhere; J44.9 Chronic obstructive pulmonary disease, unspecified; F17.210 Nicotine dependence, cigarettes, uncomplicated
CPT/HCPCS: 43239; 45378; 88305; J2704; J7030

== ENCOUNTER 2022-01-10 09:50 | Outpatient (CLI) | payer BC, SELFPAY ==
--- NOTE | 2022-01-10 10:00 | CTR_ITS ---
PROCEDURE INFORMATION: Exam: CT Chest Without Contrast; Diagnostic Exam date and time: 01/10/2022 10:16 AM Age: 56 years old Clinical indication: Condition or disease; Lung condition and disease; Pulmonary nodule, solitary; Primary cancer: Metastatic; Additional info: 3 month f/u lung nodule TECHNIQUE: Imaging protocol: Diagnostic computed tomography of the chest without contrast. Radiation optimization: All CT scans at this facility use at least one of these dose optimization techniques: automated exposure control; mA and/or kV adjustment per patient size (includes targeted exams where dose is matched to clinical indication); or iterative reconstruction. COMPARISON: CT chest wo con [id number] 07/13/2021 11:09 AM RADIATION DOSE METRICS: Total DLP (mGy-cm): 507.96 FINDINGS: Lungs: There is a 5 mm nodule in the lingula visible on series 4, image 29 which is decreased from 6 mm on 07/13/2021, and decreased from 7 mm on 02/20/2021. There is new patchy subpleural consolidation in both lower lobes. Minimal subpleural opacity in the right middle lobe and lingula is stable. Pleural spaces: There is no pleural effusion or pneumothorax. Heart: Heart size is normal. There is no pericardial effusion. There is mild coronary artery calcification. Lymph nodes: There is no mediastinal or hilar lymphadenopathy. Vasculature: The aorta is unremarkable. There is no aneurysm. Bones/joints: There is diffuse bone sclerosis in the L1 vertebra and posterior elements with slight enlargement of the vertebral body. Findings suggest Paget's disease of bone. No acute fracture. Soft tissues: The extrathoracic soft tissues are unremarkable. CT/CT chest wo con [id number] IMPRESSION: 1. New subpleural opacity in the lower lobes. Possible atelectasis or infection. 2. Decreased size of a lingular pulmonary nodule since 02/20/2021. The necessity for further imaging depends on prior PET-CT findings (not available currently).
== END 2022-01-10 09:51 | disposition home or self-care (01) ==
PROVIDERS: PCP Family Medicine Adult Medicine; Visit Provider Internal Medicine Pulmonary Disease
DX: R91.1 Solitary pulmonary nodule (principal)
CPT/HCPCS: 71250

== ENCOUNTER 2022-01-13 15:06 | Emergency (ER) | payer BC, SELFPAY ==
[2022-01-13 15:27] VITALS: BP 151/93; PULSE 93; RESP 18; TEMP 36.7; O2SAT 99
--- NOTE | 2022-01-13 15:43 | ED_ITS ---
HPI - Nausea/Vomiting/Diarrhea General: Chief complaint: Nausea/Vomiting/Diarrhea Stated complaint: n/v Time Seen by Provider: 01/13/22 15:43 History of Present Illness: Patient is a 56-year-old female comes to the ED for medication refill. Patient has a history of cancer and is currently being seen by oncologist. They found a mass in her stomach and she has been having stomach pain and nausea. She has a prescription for Zofran for nausea with it has not been helping. She is here to get a refill prescription for Phenergan because she states that that helps the most with her nausea. Associated nausea: Yes Associated symtoms: Reports nausea; Denies change in vision, chest pain, dysuria, fatigue, headache(s) or palpitations Review of Systems Const: Denies: fever(s), chills or fatigue Eyes: Denies: change in vision or eye discomfort ENMT: Denies: throat pain, odynophagia, nasal discharge or nasal congestion Card: Denies: chest pain, palpitations, edema, swelling of feet/ankles, dyspnea on exertion or orthopnea Resp: Denies: dyspnea, productive cough or non-productive cough GI: Reports: nausea; Denies: abdominal pain, vomiting, diarrhea, constipation or hematochezia : Denies: flank pain, dysuria or hematuria Musc: Denies: neck pain, back pain or extremity swelling Skin/Breast: Denies: rash or new lesions Neuro: Denies: headache(s), numbness in extremities or weakness in extremities PFSH ED PFSH: Medical History 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 Anxiety and depression Bone necrosis GERD (gastroesophageal reflux disease) Incidental lung nodule Mid back pain, chronic Surgical History History of hysterectomy History of tonsillectomy Status post colonoscopy Family History Other Aortic aneurysm CAD (coronary artery disease) Social History Smoking and tobacco status: current every day smoker cigarettes Packs smoked per day: 1 Years cigarettes smoked: 23 Alcohol intake: never Adopted: Yes (by grandparents) Lives independently: Yes Household members: none Housing: House Marital status: Legally Number of children: 0 Number of grandchildren: 0 Highest education level completed: Some College, No Degree service: No Current occupational status: other 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 Physical Exam Const: COMMON NORMALS: patient oriented x3 HENMT: COMMON NORMALS: normocephalic HEAD & SCALP: normocephalic MOUTH: Normal oral and palatal mucosa present THROAT: posterior oropharynx normal and uvula midline Neck/C-Spine: COMMON NORMALS: supple GENERAL: Yes normal visual inspection Resp: COMMON NORMALS: normal respiratory effort, No retractions, No use of acc essory muscles and clear to auscultation bilaterally AUSCULTATION: clear to auscultation bilaterally Cardio: COMMON NORMALS: regular rate, regular rhythm, S1 normal heart sound present, S2 normal heart sound present, No gallops present (Cardio), No clicks present (Cardio), No murmurs present (Cardio) and Peripheral pulses 2+ throughout RATE: regular rate RHYTHM: regular rhythm HEART SOUNDS: S1 normal heart sound present and S2 normal heart sound present PERIPHERAL PULSES: Peripheral pulses 2+ throughout GI: COMMON NORMALS: Normal to inspection, nondistended, normoactive bowel sounds present, Soft to palpation, non-tender and no masses PALPATION: Yes Soft to palpation : COMMON NORMALS: Yes no CVA tenderness BLADDER/KIDNEY EXAM: Yes no CVA tenderness Back/Pelvis: COMMON NORMALS: no CVA tenderness Extremity: COMMON NORMALS: normal to inspection Neuro: COMMON NORMALS: patient oriented x3 GAIT: Yes Normal gait present Skin: GENERAL SKIN EXAM: dry skin Course Vital Signs: Vital signs: Vital Signs Temperature 98.0 F 01/13/22 15:27 Pulse Rate 83 01/13/22 17:02 Respiratory Rate 16 01/13/22 17:02 Blood Pressure 138/85 01/13/22 17:02 Pulse Oximetry 98 01/13/22 17:02 MDM - Nausea/Vomiting/Diarrhea Medical Decision Making Patient is a 56-year-old female comes to the ED for medication refill. Patient has a history of cancer and is currently being seen by oncologist. They found a mass in her stomach and she has been having stomach pain and nausea. She has a prescription for Zofran for nausea with it has not been helping. She is here to get a refill prescription for Phenergan because she states that that helps the most with her nausea. Vitals are stable. Exam of patient is benign. Patient was given a dose of IM Phenergan here in the ED. she was stable for discharge home and sent home with a prescription for Phenergan. Told to follow-up with her PCP in the next week for reevaluation. Patient understood and agreed with plan. Discharge Plan Discharge Patient Disposition: Home Clinical Impression: Encounter for medication refill, Nausea Condition: Stable Prescriptions: New promethazine 25 mg tablet 25 mg PO Q6H PRN (Reason: nausea and vomiting) Qty: 30 0RF No Action ipratropium-albuterol 0.5 mg-3 mg(2.5 mg base)/3 mL solution for nebulization 3 ml inhalation Q4H PRN (Reason: wheezing) Qty: 90 3RF Breztri Aerosphere 160-9-4.8 mcg/actuation HFA aerosol inhaler 2 inh inhalation BID Qty: 10.7 3RF albuterol sulfate 90 mcg/actuation HFA aerosol inhaler 2 puff inhalation Q6H PRN (Reason: shortness of breath or wheezing) Qty: 17 1RF hydroxyzine HCl 50 mg tablet 50 mg PO TID PRN (Reason: anxiety) Qty: 90 3RF ondansetron 4 mg tablet,disintegrating 4 mg PO Q6H PRN (Reason: nausea and vomiting) Qty: 90 1RF (DME) nebulizers Misc See Rx Instructions .Route Qty: 1 0RF Rx Instructions: nebulizer and accessories for Dx J44.9; Length of need lifetime pantoprazole 40 mg tablet,delayed release (DR/EC) 40 mg PO BID PRN (Reason: nausea and vomiting) Qty: 60 0RF metoclopramide HCl [Reglan] 10 mg tablet 10 mg PO Q6H PRN (Reason: nausea and vomiting) Qty: 120 1RF Rx Instructions: She can take it before meals and at bedtime 4 times a day. tramadol 50 mg tablet 50 mg PO Q8H PRN (Reason: pain) 30 Days Qty: 60 2RF clarithromycin 500 mg tablet 500 mg PO BID 14 Days Qty: 28 0RF amoxicillin 500 mg tablet 1,000 mg PO BID 14 Days Qty: 56 0RF Discharge Orders: Discharge ED (Routine); Ordered 01/13/22 Ordered By: Clint Rosenberg Referrals: Gabriel Leung MD [Primary Care Provider] - Discharge Diet: Regular Discharge Activity: Increase activity as tolerated Activity Restrictions/Additional Instructions: Follow-up with medical provider as directed in the next 5 to 7 days for reevaluation. Take medications as prescribed. Return to the ER or your medical provider if condition worsens. Please read and understand discharge instructions. Thank you for choosing [facility] for your healthcare needs today. Please realize this is an emergency room and that we are providing you with a medical screening exam and this may not be complete and all inclusive of all the testing and or work up that you may need to determine your ailment or severity of your illness. It is very important that you follow up as instructed or that you return to the Emergency Department should you have concerns or if your condition changes or worsens in any way. Coding Level of Care Code ED Educational Therapist for Deejay Clark
[2022-01-13] MEDS: promethazine 25 mg/mL SDV 1 mL 50 MG IM (16:39)
[2022-01-13 17:02] VITALS: BP 138/85; PULSE 83; RESP 16; O2SAT 98
== END 2022-01-13 17:02 | disposition home or self-care (01) ==
PROVIDERS: Emergency Provider Physician Assistant; PCP Family Medicine Adult Medicine
DX: Z76.0 Encounter for issue of repeat prescription (principal); R11.0 Nausea
CPT/HCPCS: 96372; 99284; J2550

== ENCOUNTER 2022-07-17 08:33 | Day surgery (SDC) | payer OTHER, SELFPAY ==
[2022-07-16 08:31] VITALS: BMI 17.6
[2022-07-17 08:48] VITALS: BP 150/97; PULSE 92; RESP 16; TEMP 36.6; O2SAT 98
[2022-07-17] MEDS: sodium chloride 0.9% 1,000 ML 30 ML IV (08:57)
--- NOTE | 2022-07-17 09:40 | ANES.PREANE2 ---
Pre-Anesthetic Assessment Height/Weight: Height 1.65 m Weight 48.081 kg Temp Pulse Resp BP Pulse Ox O2 Del Method 97.8 F 92 16 150/97 98 Room Air 07/17/22 08:48 07/17/22 08:48 07/17/22 08:48 07/17/22 08:48 07/17/22 08:48 07/17/22 08:48 Preop Diagnosis: screening Operation Date: 07/17/22 09:45 Proposed Procedures p Colonoscopy 81958 EGD 45637 K59.00, R10.9,K92.1, K21.9,R11.2(Not Applicable) - DO manoj Gonzalez EGD(Not Applicable) - Yosvany Pierre DO Familial anesthetic complications: slow to wake up Was Beta Jumana taken within 24 hours: N/A Was Clonidine taken within 24 hours: N/A Last intake: Intake Last Liquid Date 07/16/22 Last Liquid Time 23:30 Last Solid Date 07/15/22 Last Solid Time 17:00 Last Intake: 23:30 Social No alcohol and No tobacco 1/2ppd pack(s) per day 23+ pack years Exam alert, oriented x 3, clear to auscultation bilaterally and regular rate & rhythm Airway Submandibular: within normal limits Cervical ROM: within normal limits Mallampati: Class I Dentition: full Pulmonary Asthma, Chronic Obstructive Pulmonary Disease and 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 CV/HEM None reported None reported Hepatic None reported GI Gastroesophageal Reflux Disease Metabolic None reported Musc/skel Lower Back Pain and Osteoarthritis/DJD Neuropsych None reported Anesthetic Plan ASA status: 2 Anesthesia: MAC Medications/Allergies Home Medications Medication Instructions Recorded Confirmed Last Taken Type budesonide 160 mcg-glycopyr 9 2 inh inhalation BID #10.7 grams 10/17/21 07/17/22 07/16/22 Rx mcg-formot 4.8 mcg/actuation HFA inhaler (Breztri [employer]) ipratropium 0.5 mg-albuterol 3 mg 3 ml inhalation Q4H PRN wheezing 10/17/21 07/17/22 07/16/22 Rx (2.5 mg base)/3 mL nebulization #90 mL soln albuterol sulfate 90 mcg/actuation 2 puff inhalation Q6H PRN 10/25/21 07/17/22 07/16/22 Rx aerosol inhaler shortness of breath or wheezing #17 grams hydroxyzine HCl 50 mg tablet 50 mg PO TID PRN anxiety #90 tabs 10/25/21 07/17/22 07/16/22 Rx ondansetron 4 mg disintegrating 4 mg PO Q6H PRN nausea and 11/22/21 07/17/22 07/16/22 Rx tablet vomiting #90 tabs nebulizers #1 ea 12/04/21 07/17/22 07/16/22 Rx metoclopramide HCl 10 mg tablet 10 mg PO Q6H PRN nausea and 12/13/21 07/17/22 07/16/22 Rx (Reglan) vomiting #120 tabs docusate calcium 240 mg capsule 240 mg PO BID constipation #60 caps 01/15/22 07/17/22 07/16/22 Rx (Stool Softener (docusate calcium)) magnesium oxide 400 mg PO BID constipation #60 caps 01/15/22 07/17/22 07/16/22 Rx tramadol 50 mg tablet 50 mg PO Q8H PRN pain 30 days #90 03/21/22 07/17/22 07/16/22 Rx tabs mirtazapine 15 mg tablet (Remeron) 15 mg PO .hs #30 tabs 03/28/22 07/17/22 07/16/22 Rx linaclotide 145 mcg capsule 145 mcg PO DAILY #30 caps 06/27/22 07/17/22 07/16/22 Rx (Linzess) pantoprazole 40 mg tablet,delayed 40 mg PO BID PRN nausea and 07/01/22 07/17/22 07/16/22 Rx release vomiting #60 tabs linaclotide 290 mcg capsule 290 mcg PO QAM 30 days #30 caps 07/16/22 07/17/22 07/16/22 Rx (Linzess) Allergies Allergy/AdvReac Type Severity Reaction Status Date / Time No Known Allergies Allergy Verified 07/16/22 16:34 Current Medications Generic Name Dose Route Start Last Admin Trade Name Freq PRN Reason Stop Dose Admin Sodium Chloride 1,000 mls @ 30 mls/hr 07/17/22 08:45 07/17/22 08:57 Sodium Chloride 0.9% IV 07/18/22 08:44 30 mls/hr .Q24H TAMMY Administration PFSH Anesthesia Medical History 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 Anxiety and depression Avascular necrosis of bones of both hips Bone necrosis Constipation by delayed colonic transit Gastritis GERD (gastroesophageal reflux disease) Incidental lung nodule Decreased on repeat CT from 7 to 6 to 5 mm. Mid back pain, chronic Smoker unmotivated to quit Surgical History History of hysterectomy History of tonsillectomy Status post colonoscopy Family History Other Aortic aneurysm CAD (coronary artery disease) Social History Smoking and tobacco status: current every day smoker cigarettes Packs smoked per day: 1 Years cigarettes smoked: 23 Alcohol intake: never Substance/Drug Use: never Adopted: Yes (by grandparents) Lives independently: Yes Household members: none Housing: House Marital status: Legally Number of children: 0 Number of grandchildren: 0 Highest education level completed: Some College, No Degree service: No Current occupational status: other 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
--- NOTE | 2022-07-17 10:25 | W.PM.OPSUD ---
Surgery/Procedure H&P Update DATE OF PROCEDURE: July 17, 2022 DATE H&P PERFORMED: 06/27/22 H&P UPDATE INFORMATION: I have reviewed H&P completed within last 30 days, I have examined patient prior to procedure and No changes to prior documentation PREOP DIAGNOSIS: screening PLANNED PROCEDURE: Operation Date: 07/17/22 09:45 Proposed Procedures p Colonoscopy 78713 EGD 27822 K59.00, R10.9,K92.1, K21.9,R11.2(Not Applicable) - Yosvany Pierre DO s EGD(Not Applicable) - Yosvany Pierre DO
[2022-07-17 11:16] VITALS: BP 148/98; PULSE 81; RESP 12; TEMP 36.2; O2SAT 100
[2022-07-17] MEDS: ondansetron 2 mg/ML SDV 2 mL 4 MG IVP (11:28)
[2022-07-17 11:32] VITALS: BP 143/101; PULSE 84; RESP 16; TEMP 36.3; O2SAT 99
[2022-07-17 11:34] VITALS: BP 152/101
[2022-07-17] MEDS: labetalol 5 mg/mL SDV 20mL IVP (11:53)
[2022-07-17 11:55] VITALS: BP 143/99; PULSE 75; RESP 16; O2SAT 96
[2022-07-17 12:00] VITALS: BP 137/89; PULSE 60; RESP 17; O2SAT 97
--- NOTE | 2022-07-17 12:14 | SUR.PHASEII ---
pts blood pressure was high during post op, see vital record, discussed with patient that she needed to follow up with her pcp regarding the high blood pressure. pt agrees and verbalizes understanding.
--- NOTE | 2022-07-17 13:18 | ANE.PACU2 ---
Inpatient post-anesthesia follow up: Airway intact: Yes Vital signs: Temperature 97.3 F Pulse Rate 60 Respiratory Rate 17 Blood Pressure 137/89 Pulse Oximetry 97 Oxygen Delivery Me thod Room Air Oxygen Flow Rate Fraction of Inspir ed Oxygen Hydration adequate: Yes Nausea and vomiting: Yes Pain level: 1 Mental status: Baseline
== END 2022-07-17 12:16 | disposition home or self-care (01) ==
PROVIDERS: PCP Family Medicine Adult Medicine; Visit Provider Surgery
PROC: 0DJD8ZZ Inspection of Lower Intestinal Tract, Via Natural or Artificial Opening Endoscopic (ICD-10-PCS; CPT 45378; principal; 2022-07-17 09:45)
PROC: 0DJ08ZZ Inspection of Upper Intestinal Tract, Via Natural or Artificial Opening Endoscopic (ICD-10-PCS; CPT 43235; 2022-07-17 09:45)
DX: K21.9 Gastro-esophageal reflux disease without esophagitis (principal); K92.1 Melena; R10.9 Unspecified abdominal pain; R11.2 Nausea with vomiting, unspecified; K29.70 Gastritis, unspecified, without bleeding; K59.00 Constipation, unspecified
CPT/HCPCS: 43239; 45378; 88305; 96374; 96375; J2405; J2704; J3490; J7030

== ENCOUNTER → 2022-08-21 11:05 | Outpatient (BNVA) | payer OTHER, SELFPAY | PROVIDERS: PCP Family Medicine Adult Medicine; Visit Provider Nurse Practitioner Family | DX: M25.552 Pain in left hip (principal) | CPT/HCPCS: 73502 ==

== ENCOUNTER 2022-09-17 10:25 | Outpatient (CLI) | payer OTHER, SELFPAY ==
--- NOTE | 2022-09-17 11:00 | MR_ITS ---
WS: [id number] EXAMINATION: MR hip LT wo con* [id number] ORDER DATE: 09/17/2022 10:59 AM COMPARISON: PET/CT 03/29/2021 and bone scan 12/25/2021 HISTORY: pain CONTRAST: None. TECHNIQUE: Coronal STIR of the Pelvis. Coronal proton density, coronal T1, axial T2 fat sat, axial T1 , sagittal T2 fat sat, and sagittal T1 performed of the hip FINDINGS: Previously described area of edema with central decreased signal in the right hip most compatible wit h avascular necrosis. No significant subchondral collapse. No significant edema in the left femoral head or neck. No evidence of acute avascular necrosis left h ip. Diffuse mottled sclerotic and osteolytic changes in the left hip with subchondral cystic change b est seen on the T1 imaging. No significant joint effusion. Normal visualized left pubic rami. Normal visualized soft tissues. Normal bone marrow signal in the left iliac wing and visualized sacrum. IMPRESSION: 1. Previously described suspected avascular necrosis in the right femur is unchanged. No significant subchondral collapse. 2. Diffuse chronic osseous sclerotic and lytic changes in the left femoral head and neck although wi thout significant edema. No significant subchondral collapse. Findings likely due to chronic osteoart hritis and possibly treated prior sclerotic metastatic disease. Normal bone marrow signal in the bony pelvis and sacrum. 3. Normal visualized pubic rami. 4. No significant joint effusion.
== END 2022-09-17 10:26 | disposition home or self-care (01) ==
PROVIDERS: PCP Family Medicine Adult Medicine; Visit Provider Nurse Practitioner Family
DX: M25.552 Pain in left hip (principal); Z91.81 History of falling
CPT/HCPCS: 73721

== ENCOUNTER 2023-01-16 14:21 | Outpatient (CLI) | payer BC, SELFPAY ==
--- NOTE | 2023-01-16 14:30 | CT_ITS ---
WS: [id number] CT chest wo con [id number] HISTORY: annual f/u TECHNIQUE: Axial imaging performed through the thorax. Coronal and sagittal reformats are submitted. All CT scans at [facility] use at least one of these dose optimization techniques: automated exposure control; mA and/or kV adjustment per patient size (includes targeted exams where dose is mat ched to clinical indication); or iterative reconstruction. CONTRAST: None DLP: 241.57 mGy.cm COMPARISON: PET/CT 03/29/2021, Lungs and central airway: The areas in the RIGHT lung that were positive on the prior PET/CT have res olved. These were areas of groundglass attenuation in the anterior RIGHT upper and inferior lateral R IGHT lower lobes. No residual opacifications. There is a tiny stable 3 mm nodule at the LEFT apex. Sm all cluster of benign-appearing calcifications in the anterior LEFT upper lobe. There are no areas of increasing opacification or nodularity. Pleura: Normal. No pleural effusion. Heart and pericardium: Normal size heart with no pericardial effusion. Mediastinum and randy: No mediastinum or hilar adenopathy. Vessels: Normal size aortic and pulmonary artery. No coronary artery calcifications. Chest wall and lower neck: No soft tissue masses. Upper abdomen: Prior cholecystectomy. No adrenal mass. Osseous structures: Mixed degenerative changes in the spine. Mixed sclerotic and lytic changes in L1 are similar to the prior study probably related to hemangioma. There are several small Schmorl's node s and disc space narrowing throughout the thoracic spine. IMPRESSION: 1. Interval complete resolution of the PET/CT positive opacifications in the anterior RIGHT upper and lateral RIGHT lower lobe. This was probably postinflammatory. 2. No new pulmonary nodules. Micronodule LEFT upper lobe is unchanged. 3. No adenopathy.
== END 2023-01-16 14:22 | disposition home or self-care (01) ==
PROVIDERS: PCP Family Medicine Adult Medicine; Visit Provider Internal Medicine Pulmonary Disease
DX: R91.8 Other nonspecific abnormal finding of lung field (principal)
CPT/HCPCS: 71250

== ENCOUNTER 2023-06-11 08:25 | Outpatient (CLI) | payer BC, SELFPAY ==
[2023-06-11 08:42] VITALS: PULSE 82; RESP 18; O2SAT 92
[2023-06-11] MEDS: albuterol 2.5 mg/3 mL Neb INHALATION (08:42)
[2023-06-11 08:46] VITALS: PULSE 88
== END 2023-06-11 08:26 | disposition home or self-care (01) ==
LOC: RT 08:25
PROVIDERS: PCP Family Medicine Adult Medicine; Visit Provider Internal Medicine Pulmonary Disease
DX: J43.2 Centrilobular emphysema (principal)
CPT/HCPCS: 94060; 94618; 94726; J7613

== ENCOUNTER 2023-09-03 07:52 | Outpatient (CLI) | payer BC, SELFPAY ==
--- NOTE | 2023-09-03 | ECG_ITS ---
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
[2023-09-03 08:18] VITALS: BMI 20.6
--- NOTE | 2023-09-03 08:18 | NMCV_ITS ---
NM opal perf SPECT r/s* [id number] Kristin Martinez Age: 57 Gender: F : 1965 Exam Date: 09/03/2023 08:18 Ordering Phys: Shaw Rosario MD Technologist: TERESITA Foss Exam Location: [facility] Indications: Dyspnea STRESS TEST Please see separate stress test report in [facility] for full findings IMAGE PROTOCOL Rest/Stress 1 Lexiscan Day Radiopharmaceutical Dose (mCi) Administration Site Administered by Rest: Tc-99m 10.3 IV TERESITA Foss Stress:Tc-99m 32.7 IV TERESITA Foss Rest: 03-Sep-2023 60 Discovery 630 Stress: 03-Sep-2023 30 Discovery 630 0.4mg Lexiscan. Supine position only as patient was unable to lay prone. SPECT RESULTS Technical Quality: Good Raw Data Analysis: Normal Image Corrections: No attenuation or motion correction applied Summed Stress Score: 0 Summed Rest Score: 7 Summed Difference Score: 0 PERFUSION FINDINGS There is small sized area of inconsistent reduced radiotracer uptake in the apical inferior and apical lateral barbour. This improves on stress images. This is consistent with attenuation artifact. FUNCTIONAL RESULTS (calculated via Gated SPECT) Stress Image LV EF (%): 66 Stress EDV (mL):74 TID: 1.33 Stress ESV (mL):25 FUNCTIONAL FINDINGS: There is normal left ventricular systolic function. TID ratio is elevated IMPRESSIONS 1. Attenuation artifact noted in apical inferior and apical lateral barbour. No evidence of ischemia 2. LV systolic function is normal. TID ratio is elevated. Mika Estrada MD (Electronically Signed) Final Date: 05 September 2023 12:41 S
[2023-09-03] MEDS: regadenoson 0.4 Mg/5 ml Syringe IVP (09:35)
[2023-09-03] MEDS: aminophylline 25 mg/mL SDV 10 mL IVP ×3 (09:42→09:48)
[2023-09-03 09:55] VITALS: BP 119/75; PULSE 71
== END 2023-09-03 07:53 | disposition home or self-care (01) ==
LOC: CDL 07:53
PROVIDERS: PCP Family Medicine Adult Medicine; Visit Provider Internal Medicine Pulmonary Disease
DX: R06.00 Dyspnea, unspecified (principal)
CPT/HCPCS: 36415; 78452; 93017; 96374; 96375; A9500; J0280; J2785

== ENCOUNTER → 2023-10-30 15:53 | Outpatient (BNVA) | payer BC, MEDICAID, SELFPAY | PROVIDERS: PCP Family Medicine Adult Medicine | DX: M19.072 Primary osteoarthritis, left ankle and foot (principal); M79.672 Pain in left foot | CPT/HCPCS: 73620 ==

== ENCOUNTER → 2023-12-05 11:22 | Outpatient (BNVA) | payer BC, MEDICAID, SELFPAY | PROVIDERS: PCP Family Medicine Adult Medicine; Visit Provider Family Medicine | DX: R63.4 Abnormal weight loss (principal); R51.9 Headache, unspecified; G89.29 Other chronic pain; R53.83 Other fatigue | CPT/HCPCS: 80053; 82607; 84443; 85025; 86140 ==

== ENCOUNTER → 2023-12-24 15:51 | Outpatient (BNVA) | payer MEDICAID, SELFPAY | PROVIDERS: PCP Family Medicine Adult Medicine; Visit Provider Family Medicine | DX: R74.8 Abnormal levels of other serum enzymes (principal) | CPT/HCPCS: 84075; 84080 ==

== ENCOUNTER 2024-02-03 08:00 | Outpatient (CLI) | payer OTHER, MEDICAID, SELFPAY ==
--- NOTE | 2024-02-03 08:00 | NM_ITS ---
WS: [id number] NUCLEAR MEDICINE WHOLE BODY BONE SCAN HISTORY: abnormal bone portion alk phos; weight loss COMPARISON: 12/25/2021 bone scan, prior MRI LEFT hip 09/17/2022, PET/CT 03/29/2021 TECHNIQUE: The patient was injected with 26 mCi of Technetium 99m HDP and serial whole-body scintigra ms have been performed with anterior and posterior images. Abnormal uptake at several locations throughout the bony skeleton. Moderate increased uptake in nearly the entire RIGHT clavicle, unchanged. Focal increased uptake within what is probably L1 and L2 is stable. Focal increased uptake involving the RIGHT femoral head and neck extending into the greater and lesse r trochanters. Lesser uptake in the LEFT femoral head and neck and LEFT guilherme. All of these findings w ere present on the prior study also without significant change or progression. Moderate uptake at the knees and ankles and at the shoulder joints is probably arthropathy. Normal so ft tissue and renal uptake. NM/NM bone scan whole body* [id number] IMPRESSION: 1. Multiple levels of abnormal uptake in the bony skeleton as above. All of th anthony areas were also described on 12/25/2021 therefore this is probably treated metastatic bone disease. Some of the changes involving the hips are thought to be related to avascular necrosis. 2. No new area of intense uptake.
--- NOTE | 2024-02-03 09:19 | CT_ITS ---
WS: [id number] CT chest wo con [id number] HISTORY: hx of lung nodules; micronodule last CT 01.16.23 TECHNIQUE: Axial imaging performed through the thorax. Coronal and sagittal reformats are submitted. All CT scans at [facility] use at least one of these dose optimization techniques: automated exposure control; mA and/or kV adjustment per patient size (includes targeted exams where dose is mat ched to clinical indication); or iterative reconstruction. CONTRAST: None DLP: 323.65 mGy.cm COMPARISON: 07/13/2021, 01/10/2022, 01/16/2023 Lungs and central airway: Long-term stability micronodule LEFT upper lobe. Benign calcifications in t he anterior LEFT upper lobe. No new pulmonary mass, pneumonia nodule or pneumonia. Pleura: Normal. No pleural effusion. Heart and pericardium: Normal size heart with no pericardial effusion. Mediastinum and randy: No mediastinum or hilar adenopathy. Vessels: Normal size aortic and pulmonary artery. No coronary artery calcifications. Chest wall and lower neck: No soft tissue masses. Upper abdomen: Prior cholecystectomy. No adrenal mass. Osseous structures: No destructive process. Long-term stability mildly sclerotic L1 vertebral body. CT/CT chest wo con [id number] IMPRESSION: 1. Stable noncontrast chest CT. No new or enlarging mass. Long-term stability micronodule LEFT upper lobe. 2. No mediastinal or hilar adenopathy.
== END 2024-02-03 08:01 | disposition home or self-care (01) ==
LOC: RAD 08:00
PROVIDERS: PCP Family Medicine; Visit Provider Family Medicine
DX: R74.8 Abnormal levels of other serum enzymes (principal); R63.4 Abnormal weight loss; R91.1 Solitary pulmonary nodule; J84.10 Pulmonary fibrosis, unspecified; R93.7 Abnormal findings on diagnostic imaging of other parts of musculoskeletal system; Z90.49 Acquired absence of other specified parts of digestive tract
CPT/HCPCS: 71250; 78306; A9561

== ENCOUNTER 2024-03-04 07:17 | Oncology outpatient (recurring) (ONCR) | payer OTHER, MEDICAID, SELFPAY ==
[2024-02-25 17:43] LABS: Basophils % 0.3 %; Eosinophils # 0.1 10^3/uL (0.0-0.8); Eosinophils % 1.5 %; Lymphocytes # 1.5 10^3/uL (0.8-4.8); Lymphocytes % 25.3 %; Mean Corpuscular HGB Conc 32.2 g/dL (30-55); Mean Corpuscular Hemoglobin 29.4 pg (27-33); Mean Corpuscular Volume 91.1 fl (85-98); Mean Platelet Volume 9.5 fL (7.4-10.4); Monocytes # 0.3 10^3/uL (0.2-0.9); Monocytes % 5.5 %; Neutrophils # 4.04 10^3/uL (1.8-7.7); Neutrophils % 67.2 %; Nucleated Red Blood Cells % 0 %; Platelet Count 229 10^3/cmm (157-399); Red Blood Count 4.94 10^6/uL (3.85-5.65); Red Cell Distribution Width 13.3 % (12.1-15.1); Reticulocyte % 1.6 % (0.5-2.0); White Blood Count 6.01 10^3/uL (3.29-11.43)
[2024-02-25 17:46] LABS: Erythrocyte Sedimentation Rate 3 mm/hr (0-15)
[2024-02-25 18:16] LABS: Alanine Aminotransferase 10 U/L (0-33); Albumin Level 4.8 g/dL (3.5-5.2); Alkaline Phosphatase 225 U/L (35-105); Anion Gap 13.7 (5-19); Aspartate Amino Transferase 18 U/L (0-32); Blood Urea Nitrogen 15 mg/dL (6-20); Calcium 9.4 mg/dL (8.5-10.5); Carbon Dioxide 28 mmol/L (22-29); Chloride 101 mmol/L (98-107); Creatinine Clr Calc Pharmacy 76.7602; Ferritin 89 ng/mL (15-150); Globulin 3.4 g/dL (1.3-4.6); Glomerular Filtration Rate 85.9 mL/min (90-130); Glucose 83 mg/dL (65-115); Homocysteine 14.32 umol/l (0-15); Iron 69 ug/dL (37-145); Lactate Dehydrogenase 165 U/L (135-214); Osmolality Calculated 288 mOsm/kg (285-295); Percent Saturation 20.6 % (20-50); Potassium 3.7 mmol/L (3.5-5.1); Sodium 139 mmol/L (136-145); Total Bilirubin 0.9 mg/dL (0.15-1.2); Total Iron Binding Capacity 334 mcg/dl; Total Protein 8.2 g/dL (6.6-8.7); Unsaturated Iron Binding 265 ug/dL (112-347)
[2024-02-25 18:30] LABS: Vitamin B12 551 pg/mL (232-1245)
[2024-02-25 18:32] LABS: Folate Level 7.5 ng/mL (4.8-37.3)
[2024-02-27 10:34] LABS: PROTEIN, TOTAL 8.2 g/dL (6.1-8.1)
[2024-03-01 11:40] LABS: KAPPA LIGHT CHAIN, FREE, SERUM 42.1 mg/L (3.3-19.4); KAPPA/LAMBDA LIGHT CHAINS FREE 1.58 (0.26-1.65); LAMBDA LIGHT CHAIN, FREE, SERU 26.6 mg/L (5.7-26.3)
[2024-03-01 15:48] LABS: ALPHA 1 GLOBULIN 0.3 g/dL (0.2-0.3); ALPHA 2 GLOBULIN 0.8 g/dL (0.5-0.9); BETA 1 GLOBULIN 0.5 g/dL (0.4-0.6); BETA 2 GLOBULIN 0.4 g/dL (0.2-0.5); GAMMA GLOBULIN 1.3 g/dL (0.8-1.7)
--- NOTE | 2024-03-04 07:15 | US_ITS ---
WS: [id number] Complete ABDOMINAL ULTRASOUND HISTORY: abnormal findings on diagnostic imaging COMPARISON: CT abdomen pelvis 11/13/2021 Liver: 14.7 cm in length. Normal size liver and echogenicity. No bile duct dilatation or mass. Portal Vein: Normal hepatopetal flow with monophasic waveform. Gallbladder: Status post cholecystectomy. CBD: 0.6 cm Pancreas: Normal size and echogenicity. Right kidney: 9.8 cm x 4.5 x 4.4 cm. Cortex:1.0 cm. Normal size and echogenicity. No hydronephrosis or mass. Left kidney: 9.4 cm x 4.5 cm x 4.3 cm. Cortex: 1.0 cm. Normal size and echogenicity. No hydronephrosis or mass. Spleen: 11.4 cm. Normal size and echogenicity. Aorta and IVC: Unremarkable abdominal aorta and IVC. US/US abdomen complete* [id number] Impression: 1. Status post cholecystectomy. 2. Remaining abdomen ultrasound is negative.
[2024-03-05 09:56] LABS: Methylmalonic Acid 181 nmol/L (55-335)
[2024-03-07 20:24] LABS: Immunofixation Serum Normal pattern.
== END 2024-03-12 23:59 | disposition home or self-care (01) ==
LOC: ONCMED 07:17 → RAD 03-05
PROVIDERS: PCP Family Medicine; Visit Provider Internal Medicine
DX: Z53.9 Procedure and treatment not carried out, unspecified reason; R93.9 Diagnostic imaging inconclusive due to excess body fat of patient; Z90.49 Acquired absence of other specified parts of digestive tract
CPT/HCPCS: 76700; 80053; 82607; 82728; 82746; 83010; 83090; 83540; 83550; 83615; 83883; 83921; 84155; 84165; 85025; 85045; 85651; 86140; 86334

== ENCOUNTER 2024-04-12 15:06 | Outpatient (CLI) | payer OTHER, MEDICAID, SELFPAY ==
--- NOTE | 2024-04-12 15:15 | XRR_ITS ---
PROCEDURE INFORMATION: Exam: XR Osseous Survey; Complete Axial And Appendicular Skeleton Exam date and time: 04/12/2024 3:35 PM Age: 58 years old Clinical indication: Abnormal findings on diagnostic imaging; Prior surgery; Surgery date: 6+ months; Surgery type: Hysterectomy; HX of lung cancer; Additional info: Abnoormal findings on diagnostic imaging of other parts of m TECHNIQUE: Imaging protocol: Radiological examination. Complete osseous survey. Axial and appendicular skeleton. COMPARISON: NM bone scan whole body* [id number] 02/03/2024 8:00 AM FINDINGS: Bones/joints: Mild to moderate disc degeneration in the cervical spine. Moderate degenerative disease throughout the lumbar spine. Mild age-indeterminate T12 and L1 superior endplate compression fractures. Mild diffuse bone sclerosis and enlargement of the T12 vertebral body. Heterogeneous bone sclerosis and trabecular coarsening in proximal femora bilaterally. No sign of avascular necrosis or significant degenerative disease at the hips. Asymmetric bone sclerosis in the left posterior ilium adjacent to the SI joint. No visible fracture. Soft tissues: Unremarkable. XR/XR bone survey* [id number] IMPRESSION: 1. Bone sclerosis in the proximal femora, the left posterior ilium, and T12 corresponding to abnormal areas of radiotracer uptake on the bone scan. Findings suggest Paget's disease of bone. Metastases are less likely. 2. Additionally, there are mild age-indeterminate L1 and L2 compression fractures.
== END 2024-04-12 15:07 | disposition home or self-care (01) ==
LOC: RAD 15:10
PROVIDERS: PCP Family Medicine; Visit Provider Internal Medicine
DX: R93.7 Abnormal findings on diagnostic imaging of other parts of musculoskeletal system (principal); M89.9 Disorder of bone, unspecified; M48.56XA Collapsed vertebra, not elsewhere classified, lumbar region, initial encounter for fracture; M51.369 Other intervertebral disc degeneration, lumbar region without mention of lumbar back pain or lower extremity pain; M47.892 Other spondylosis, cervical region
CPT/HCPCS: 77075

== ENCOUNTER 2024-05-26 18:07 | Emergency (ER) | payer OTHER, MEDICAID, SELFPAY ==
[2024-05-26 18:12] VITALS: BP 111/80; PULSE 98; TEMP 36.4; O2SAT 99; BMI 18.7
[2024-05-26 19:47] VITALS: BP 122/71; PULSE 99; O2SAT 96
--- NOTE | 2024-05-26 20:06 | W.ED.FEMALGU ---
Documented by User: Kriss Poon MD 05/26/24 20:36 HPI - Female Genitourinary General: Chief complaint: Urogenital-Female Stated complaint: cant pee, severe shingles on back side Time Seen by Provider: 05/26/24 19:52 History of Present Illness: 58-year-old female with history of Paget disease, chronic pain syndrome, headaches, tobacco dependence, hypertension, anxiety and depression who presents emergency room with difficulty urinating. She was seen on telemedicine and started on valacyclovir. No steroids. No other medications. She is on oxycodone and on a pain contract. Related Data Home Medications ?Medication ?Instructions ?Recorded ?Confirmed naloxegol 25 mg tablet (Movantik) 25 mg PO QAM 05/12/23 04/14/24 scopolamine base 1 mg over 3 days 1 patch transdermal Q3D PRN 05/12/23 04/14/24 transdermal patch Previous Rx's ?Medication ?Instructions ?Recorded nebulizers #1 ea 12/04/21 magnesium oxide 400 mg PO BID constipation #60 caps 01/15/22 linaclotide 290 mcg capsule 290 mcg PO QAM 30 days #30 caps 01/08/23 (Linzess) budesonide 160 mcg-glycopyr 9 2 inh inhalation BID #10.7 grams 04/15/23 mcg-formot 4.8 mcg/actuation HFA inhaler (Breztri Aerosphere) albuterol sulfate 90 mcg/actuation 2 puff inhalation Q4H PRN 07/14/23 aerosol inhaler shortness of breath or wheezing #8.5 grams lisinopril 2.5 mg tablet See Rx Instructions .Route 09/16/23 .COMPLEX #30 tabs hydroxyzine HCl 50 mg tablet 50 mg PO TID PRN dizziness or 09/26/23 vertigo #90 tabs pantoprazole 40 mg tablet,delayed 40 mg PO BID PRN nausea and 10/07/23 release vomiting #60 tabs mirtazapine 15 mg tablet (Remeron) 15 mg PO .hs #30 tabs 11/27/23 ondansetron 4 mg disintegrating 4 mg PO Q6H PRN nausea and 01/22/24 tablet vomiting #90 tabs ipratropium 0.5 mg-albuterol 3 mg 3 ml inhalation Q4H PRN wheezing 02/16/24 (2.5 mg base)/3 mL nebulization #90 mL soln metoclopramide HCl 10 mg tablet 10 mg PO Q6H PRN nausea and 04/22/24 (Reglan) vomiting #120 tabs oxycodone 10 mg tablet 10 mg PO TID PRN pain 30 days #90 05/23/24 tabs cephalexin 500 mg capsule 500 mg PO BID 7 days #14 caps 05/26/24 gabapentin 100 mg capsule 100 mg PO TID #60 caps 05/26/24 prednisone 20 mg tablet 60 mg (3 x 20 mg) PO DAILY #20 tabs 05/26/24 Allergies Allergy/AdvReac Type Severity Reaction Status Date / Time No Known Allergies Allergy Verified 05/26/24 18:17 Review of Systems Narrative: Constitutional symptoms: Negative except as documented in HPI. Skin symptoms: Negative except as documented in HPI. Eye symptoms: Negative except as documented in HPI. ENMT symptoms: Negative except as documented in HPI. Respiratory symptoms: Negative except as documented in HPI. Cardiovascular symptoms: Negative except as documented in HPI. Gastrointestinal symptoms: Negative except as documented in HPI. Genitourinary symptoms: Negative except as documented in HPI. Musculoskeletal symptoms: Negative except as documented in HPI. Neurologic symptoms: Negative except as documented in HPI. Psychiatric symptoms: Negative except as documented in HPI. Endocrine symptoms: Negative except as documented in HPI. [facility] ED PFSH: Medical History (Updated 05/26/24 @ 22:06 by PRISCILLA Verdin) 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; PET done 2021 and 02/02 show lesions--read as treated mets but no hx of cancer--referred to oncology who has now made dx of Paget's disease of bone and requesting referral to endo Pain management contract signed signed .08.04 but had been getting pain meds already Encounter for chronic pain management Abnormal positron emission tomography (PET) scan PET done 2021 and 02/02 show lesions--read as treated mets but no hx of cancer--referred to oncology who has now made dx of Paget's disease of bone Incidental lung nodule last CT 02.01--micronodule only now; Abnormal alkaline phosphatase test bone portion Chronic headaches Fatigue Unexplained weight loss Current smoker Disability examination Hypertension Avascular necrosis of bones of both hips Gastritis GERD (gastroesophageal reflux disease) Anxiety and depression Mid back pain, chronic 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 Surgical History History of tonsillectomy History of hysterectomy w/ BSO due to endometriosis; had 7 miscarriages Status post colonoscopy 6.7.23 Family History Father Aortic aneurysm Other CAD (coronary artery disease) Social History Smoking and tobacco/nicotine status: current every day tobacco/nicotine user cigarettes Packs smoked per day: 1 Years cigarettes smoked: 23 Alcohol intake: never Substance/Drug Use: current Adopted: Yes (by grandparents) Lives independently: Yes Household members: none Housing: House Marital status: Legally Number of children: 0 Number of grandchildren: 0 Highest education level completed: Some College, No Degree service: No Current occupational status: disabled and other 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 Skin: Warm, dry. There is a large patch of lesions on the right buttock. This very well could be shingles, but right now the blisters have all been ruptured and has been under a dressing and is white and wet Head: Normocephalic, atraumatic. Neck: Supple, trachea midline. Eye: Extraocular movements are intact. Ears, nose, mouth and throat: mucosa moist. Cardiovascular: Regular, Normal peripheral perfusion. Respiratory: Lungs are clear to auscultation, respirations are non-labored, breath sounds are equal, Symmetrical chest wall expansion. Gastrointestinal: Soft, some mild suprapubic tenderness, Non distended Musculoskeletal: Normal ROM, no deformity. Neurological: Alert and oriented, No focal neurological deficit observed. Psychiatric: Cooperative, appropriate mood & affect. Course Vital Signs: Vital signs: Vital Signs Temperature 97.6 F 05/26/24 18:12 Pulse Rate 88 05/26/24 22:00 Blood Pressure 126/95 05/26/24 22:00 Pulse Oximetry 98 05/26/24 22:00 Oxygen Delivery Me thod Room Air 05/26/24 22:00 MDM - Female Medical Decision Making Medical decision making: Differential diagnosis for patient with urinary retention including but not limited to and based on the above HPI, review of systems and physical exam:-: Urinary retention. Urinary tract infection. concerns for systemic infection, renal dysfunction Orders placed to evaluate differential diagnosis based on the above differential, HPI and physical exam Lab Review: Laboratory results were reviewed and interpreted by myself the emergency room physician. I reviewed the patient's medical record. Reexamination: Assessment and plan: - Discharged home - Discussed plan with patient. Answered any questions. - Evaluation and treatment of this problem were appropriate in the emergency setting. Lab Data 05/26/24 20:21 05/26/24 20:21 Laboratory Results WBC 8.18 10^3/uL (3.29-11.43) 05/26/24 20: RBC 5.54 10^6/uL (3.85-5.65) 05/26/24 20: Hgb 15.70 g/dL (11.27-16.99) 05/26/24 20:21 Hct 51.4 % (36-47) H 05/26/24 20: MCV 92.8 fl (85-98) 05/26/24 20:21 MCH 28.3 pg (27-33) 05/26/24 20: MCHC 30.5 g/dL (30-55) 05/26/24 20: RDW 13.7 % (12.1-15.1) 05/26/24 20: Plt Count 213 10^3/cmm (157-399) 05/26/24 20:21 MPV 8.7 fL (7.4-10.4) 05/26/24 20: Neut % (Auto) 67.4 % 05/26/24: Lymph % (Auto) 22.7 % 05/26/24 20: [place] % (Auto) 7.6 % 05/26/24 20: Eos % (Auto) 1.6 % 05/26/24 20: Baso % (Auto) 0.5 % 05/26/24: Neut # (Auto) 5.51 10^3/uL (1.8-7.7) 05/26/24 20:21 Lymph # (Auto) 1.9 10^3/uL (0.8-4.8) 05/26/24: [place] # (Auto) 0.6 10^3/uL (0.2-0.9) 05/26/24 20:21 Eos # (Auto) 0.1 10^3/uL (0.0-0.8) 05/26/24 20:21 Baso # (Auto) 0.0 10^3/uL (0.0-0.1) 05/26/24 20:21 Nucleated RBC % (auto) 0 % 05/26/24 20:21 Nucleated RBCs # 0.0 /100WBC 05/26/24 20:21 Sodium 133 mmol/L (136-145) L 05/26/24 20:21 Potassium 4.3 mmol/L (3.5-5.1) 05/26/24 20:21 Chloride 98 mmol/L (98-107) 05/26/24 20:21 Carbon Dioxide 19 mmol/L (22-29) L 05/26/24 20:21 Anion Gap 20.3 (5-19) H 05/26/24 20:21 BUN 15 mg/dL (6-20) 05/26/24 20:21 Creatinine 0.6 mg/dL (0.5-0.9) 05/26/24 20:21 GFR Calculation 102.7 mL/min (90-130) 05/26/24 20:21 Glucose 88 mg/dL (65-115) 05/26/24 20:21 Calculated Osmolality 276 mOsm/kg (285-295) L 05/26/24 20:21 Calcium 9.3 mg/dL (8.5-10.5) 05/26/24 20:21 Total Bilirubin 0.8 mg/dL (0.15-1.2) 05/26/24 20:21 AST 21 U/L (0-32) 05/26/24 20:21 ALT 10 U/L (0-33) 05/26/24 20:21 Alkaline Phosphatase 165 U/L (35-105) H 05/26/24 20:21 Total Protein 8.8 g/dL (6.6-8.7) H 05/26/24 20:21 Albumin 4.3 g/dL (3.5-5.2) 05/26/24 20:21 Globulin 4.5 g/dL (1.3-4.6) 05/26/24 20:21 Urine Color Dark yellow (Yellow) A 05/26/24 20:50 Urine Appearance Clear (CLEAR) 05/26/24 20:50 Urine pH 5 (5-7) 05/26/24 20:50 Ur Specific Marissa 1.020 (1.005-1.030) 05/26/24 20:50 Urine Protein Neg (Negative) 05/26/24 20:50 Urine Glucose (UA) Norm (Normal) 05/26/24 20:50 Urine Ketones Negative (Negative) 05/26/24 20:50 Urine Blood Neg (Negative) 05/26/24 20:50 Urine Nitrate Negative (Negative) 05/26/24 20:50 Urine Bilirubin Neg (Negative) 05/26/24 20:50 Urine Urobilinogen Neg mg/dL (Negative) 05/26/24 20:50 Ur Leukocyte Esterase Negative (Negative) 05/26/24 20:50 Urine RBC 3-5 /hpf (0-2) 05/26/24 20:50 Urine WBC 0-5 /hpf (0-5) 05/26/24 20:50 Ur Squamous Epith Cells 0-5 /hpf (0-5) 05/26/24 20:50 Amorphous Sediment Not Reportable 05/26/24 20:50 Urine Bacteria None seen /hpf (NONE) 05/26/24 20:50 Hyaline Casts 0.40 /lpf 05/26/24 20:50 Discharge Plan Discharge Patient Disposition: Home Clinical Impression: Shingles Qualifiers: Herpes zoster complications: without complications Qualified Code(s): B02.9 - Zoster without complications Condition: Stable Prescriptions: New prednisone 20 mg tablet 60 mg PO DAILY Qty: 20 0RF Rx Instructions: 3 tabs (60 mg) x 3 days. 2 tabs (40 mg) x 3 days. 1 tab (20 mg) x 3 days. 1/2 tab (10 mg) x 4 days gabapentin 100 mg capsule 100 mg PO TID Qty: 60 0RF Rx Instructions: Start with 1 tab 3 times daily. You may increase up to 3-4 tabs (300 to 400 mg) 3 times a day. cephalexin 500 mg capsule 500 mg PO BID 7 Days Qty: 14 0RF No Action albuterol sulfate 90 mcg/actuation HFA aerosol inhaler 2 puff inhalation Q4H PRN (Reason: shortness of breath or wheezing) Qty: 8.5 6RF Rx Instructions: Administer with spacer magnesium oxide 400 mg magnesium capsule 400 mg PO BID Qty: 60 5RF Linzess 290 mcg capsule 290 mcg PO QAM 30 Days Qty: 30 5RF scopolamine base 1 mg over 3 days patch 3 day 1 patch transdermal Q3D PRN Movantik 25 mg tablet 25 mg PO QAM Rx Instructions: must be taken on empty stomach; no food 1 hr after or 2-3 hrs before dose (DME) nebulizers Misc See Rx Instructions .Route Qty: 1 0RF Rx Instructions: nebulizer and accessories for Dx J44.9; Length of need lifetime Breztri Aerosphere 160-9-4.8 mcg/actuation HFA aerosol inhaler 2 inh inhalation BID Qty: 10.7 3RF lisinopril 2.5 mg tablet See Rx Instructions .ROUTE .COMPLEX Qty: 30 5RF Dose Instruction: TAKE ONE TABLET BY MOUTH DAILY FOR blood pressure Rx Instructions: TAKE ONE TABLET BY MOUTH DAILY FOR blood pressure hydroxyzine HCl 50 mg tablet 50 mg PO TID PRN (Reason: dizziness or vertigo) Qty: 90 3RF pantoprazole 40 mg tablet,delayed release (DR/EC) 40 mg PO BID PRN (Reason: nausea and vomiting) Qty: 60 5RF mirtazapine [Remeron] 15 mg tablet 15 mg PO .hs Qty: 30 5RF ondansetron 4 mg tablet,disintegrating 4 mg PO Q6H PRN (Reason: nausea and vomiting) Qty: 90 1RF ipratropium-albuterol 0.5 mg-3 mg(2.5 mg base)/3 mL solution for nebulization 3 ml inhalation Q4H PRN (Reason: wheezing) Qty: 90 3RF metoclopramide HCl [Reglan] 10 mg tablet 10 mg PO Q6H PRN (Reason: nausea and vomiting) Qty: 120 5RF Rx Instructions: She can take it before meals and at bedtime 4 times a day. oxycodone 10 mg tablet 10 mg PO TID PRN (Reason: pain) 30 Days Qty: 90 0RF Discharge Orders: Discharge ED (Routine); Ordered 05/26/24 Ordered By: Pardeep Nazario Referrals: Stephani Mims MD [Primary Care Provider] - Patient Instructions: Potter Catheter Care, How to Change a Catheter Drainage Bag (DC), Opioid Safety, Pain Management Activity Restrictions/Additional Instructions: Take the antibiotics as prescribed. Take the other prescribed medications. Potter catheter in place, follow-up with your regular doctor. Return with any new or worsening symptoms. 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 [employer] Documented by User: PRISCILLA Verdin 05/26/24 22:07 HPI - Female Genitourinary General: Chief complaint: Urogenital-Female Stated complaint: cant pee, severe shingles on back side Time Seen by Provider: 05/26/24 19:52 Related Data Home Medications ?Medication ?Instructions ?Recorded ?Confirmed naloxegol 25 mg tablet (Movantik) 25 mg PO QAM 05/12/23 04/14/24 scopolamine base 1 mg over 3 days 1 patch transdermal Q3D PRN 05/12/23 04/14/24 transdermal patch Previous Rx's ?Medication ?Instructions ?Recorded nebulizers #1 ea 12/04/21 magnesium oxide 400 mg PO BID constipation #60 caps 01/15/22 linaclotide 290 mcg capsule 290 mcg PO QAM 30 days #30 caps 01/08/23 (Linzess) budesonide 160 mcg-glycopyr 9 2 inh inhalation BID #10.7 grams 04/15/23 mcg-formot 4.8 mcg/actuation HFA inhaler (Breztri Aerosphere) albuterol sulfate 90 mcg/actuation 2 puff inhalation Q4H PRN 07/14/23 aerosol inhaler shortness of breath or wheezing #8.5 grams lisinopril 2.5 mg tablet See Rx Instructions .Route 09/16/23 .COMPLEX #30 tabs hydroxyzine HCl 50 mg tablet 50 mg PO TID PRN dizziness or 09/26/23 vertigo #90 tabs pantoprazole 40 mg tablet,delayed 40 mg PO BID PRN nausea and 10/07/23 release vomiting #60 tabs mirtazapine 15 mg tablet (Remeron) 15 mg PO .hs #30 tabs 11/27/23 ondansetron 4 mg disintegrating 4 mg PO Q6H PRN nausea and 01/22/24 tablet vomiting #90 tabs ipratropium 0.5 mg-albuterol 3 mg 3 ml inhalation Q4H PRN wheezing 02/16/24 (2.5 mg base)/3 mL nebulization #90 mL soln metoclopramide HCl 10 mg tablet 10 mg PO Q6H PRN nausea and 04/22/24 (Reglan) vomiting #120 tabs oxycodone 10 mg tablet 10 mg PO TID PRN pain 30 days #90 05/23/24 tabs cephalexin 500 mg capsule 500 mg PO BID 7 days #14 caps 05/26/24 gabapentin 100 mg capsule 100 mg PO TID #60 caps 05/26/24 prednisone 20 mg tablet 60 mg (3 x 20 mg) PO DAILY #20 tabs 05/26/24 Allergies Allergy/AdvReac Type Severity Reaction Status Date / Time No Known Allergies Allergy Verified 05/26/24 18:17 [facility] ED PFS: Medical History (Updated 05/26/24 @ 22:06 by PRISCILLA Verdin) 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; PET done 2021 and 02/02 show lesions--read as treated mets but no hx of cancer--referred to oncology who has now made dx of Paget's disease of bone and requesting referral to endo Pain management contract signed signed 2.. but had been getting pain meds already Encounter for chronic pain management Abnormal positron emission tomography (PET) scan PET done 2021 and 02/02 show lesions--read as treated mets but no hx of cancer--referred to oncology who has now made dx of Paget's disease of bone Incidental lung nodule last CT 02.01--micronodule only now; Abnormal alkaline phosphatase test bone portion Chronic headaches Fatigue Unexplained weight loss Current smoker Disability examination Hypertension Avascular necrosis of bones of both hips Gastritis GERD (gastroesophageal reflux disease) Anxiety and depression Mid back pain, chronic 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 Surgical History History of tonsillectomy History of hysterectomy w/ BSO due to endometriosis; had 7 miscarriages Status post colonoscopy 6.7.23 Family History Father Aortic aneurysm Other CAD (coronary artery disease) Social History Smoking and tobacco/nicotine status: current every day tobacco/nicotine user cigarettes Packs smoked per day: 1 Years cigarettes smoked: 23 Alcohol intake: never Substance/Drug Use: current Adopted: Yes (by grandparents) Lives independently: Yes Household members: none Housing: House Marital status: Legally Number of children: 0 Number of grandchildren: 0 Highest education level completed: Some College, No Degree service: No Current occupational status: disabled and other 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 Previous occupational history: had worked at [employer] Vital Signs: Vital signs: Vital Signs Temperature 97.6 F 05/26/24 18:12 Pulse Rate 88 05/26/24 22:00 Blood Pressure 126/95 05/26/24 22:00 Pulse Oximetry 98 05/26/24 22:00 Oxygen Delivery Me thod Room Air 05/26/24 22:00 MDM - Female Lab Data 05/26/24 20:21 05/26/24 20:21 Laboratory Results WBC 8.18 10^3/uL (3.29-11.43) 05/26/24 20:21 RBC 5.54 10^6/uL (3.85-5.65) 05/26/24 20:21 Hgb 15.70 g/dL (11.27-16.99) 05/26/24 20:21 Hct 51.4 % (36-47) H 05/26/24 20:21 MCV 92.8 fl (85-98) 05/26/24 20:21 MCH 28.3 pg (27-33) 05/26/24 20:21 MCHC 30.5 g/dL (30-55) 05/26/24 20:21 RDW 13.7 % (12.1-15.1) 05/26/24 20:21 Plt Count 213 10^3/cmm (157-399) 05/26/24 20:21 MPV 8.7 fL (7.4-10.4) 05/26/24 20:21 Neut % (Auto) 67.4 % 05/26/24 20:21 Lymph % (Auto) 22.7 % 05/26/24 20:21 [place] % (Auto) 7.6 % 05/26/24 20:21 Eos % (Auto) 1.6 % 05/26/24 20:21 Baso % (Auto) 0.5 % 05/26/24 20:21 Neut # (Auto) 5.51 10^3/uL (1.8-7.7) 05/26/24 20:21 Lymph # (Auto) 1.9 10^3/uL (0.8-4.8) 05/26/24 20:21 [place] # (Auto) 0.6 10^3/uL (0.2-0.9) 05/26/24 20:21 Eos # (Auto) 0.1 10^3/uL (0.0-0.8) 05/26/24 20:21 Baso # (Auto) 0.0 10^3/uL (0.0-0.1) 05/26/24 20: Nucleated RBC % (auto) 0 % 05/26/24 20: Nucleated RBCs # 0.0 /100WBC 05/26/24 20:21 Sodium 133 mmol/L (136-145) L 05/26/24 20:21 Potassium 4.3 mmol/L (3.5-5.1) 05/26/24 20:21 Chloride 98 mmol/L (98-107) 05/26/24 20:21 Carbon Dioxide 19 mmol/L (22-29) L 05/26/24 20:21 Anion Gap 20.3 (5-19) H 05/26/24 20:21 BUN 15 mg/dL (6-20) 05/26/24 20:21 Creatinine 0.6 mg/dL (0.5-0.9) 05/26/24 20:21 GFR Calculation 102.7 mL/min (90-130) 05/26/24 20:21 Glucose 88 mg/dL (65-115) 05/26/24 20:21 Calculated Osmolality 276 mOsm/kg (285-295) L 05/26/24 20:21 Calcium 9.3 mg/dL (8.5-10.5) 05/26/24 20: Total Bilirubin 0.8 mg/dL (0.15-1.2) 05/26/24 20:21 AST 21 U/L (0-32) 05/26/24 20:21 ALT 10 U/L (0-33) 05/26/24 20:21 Alkaline Phosphatase 165 U/L (35-105) H 05/26/24 20:21 Total Protein 8.8 g/dL (6.6-8.7) H 05/26/24 20:21 Albumin 4.3 g/dL (3.5-5.2) 05/26/24 20:21 Globulin 4.5 g/dL (1.3-4.6) 05/26/24 20:21 Urine Color Dark yellow (Yellow) A 05/26/24 20:50 Urine Appearance Clear (CLEAR) 05/26/24 20:50 Urine pH 5 (5-7) 05/26/24 20:50 Ur Specific [place] 1.020 (1.005-1.030) 05/26/24 20:50 Urine Protein Neg (Negative) 05/26/24 20:50 Urine Glucose (UA) Norm (Normal) 05/26/24 20:50 Urine Ketones Negative (Negative) 05/26/24 20:50 Urine Blood Neg (Negative) 05/26/24 20:50 Urine Nitrate Negative (Negative) 05/26/24 20:50 Urine Bilirubin Neg (Negative) 05/26/24 20:50 Urine Urobilinogen Neg mg/dL (Negative) 05/26/24 20:50 Ur Leukocyte Esterase Negative (Negative) 05/26/24 20:50 Urine RBC 3-5 /hpf (0-2) 05/26/24 20:50 Urine WBC 0-5 /hpf (0-5) 05/26/24 20:50 Ur Squamous Epith Cells 0-5 /hpf (0-5) 05/26/24 20:50 Amorphous Sediment Not Reportable 05/26/24 20:50 Urine Bacteria None seen /hpf (NONE) 05/26/24 20:50 Hyaline Casts 0.40 /lpf 05/26/24 20:50 No radiology studies performed this visit Discharge Plan Discharge Patient Disposition: Home Clinical Impression: Shingles Qualifiers: Herpes zoster complications: without complications Qualified Code(s): B02.9 - Zoster without complications Condition: Stable Prescriptions: New prednisone 20 mg tablet 60 mg PO DAILY Qty: 20 0RF Rx Instructions: 3 tabs (60 mg) x 3 days. 2 tabs (40 mg) x 3 days. 1 tab (20 mg) x 3 days. 1/2 tab (10 mg) x 4 days gabapentin 100 mg capsule 100 mg PO TID Qty: 60 0RF Rx Instructions: Start with 1 tab 3 times daily. You may increase up to 3-4 tabs (300 to 400 mg) 3 times a day. cephalexin 500 mg capsule 500 mg PO BID 7 Days Qty: 14 0RF No Action albuterol sulfate 90 mcg/actuation HFA aerosol inhaler 2 puff inhalation Q4H PRN (Reason: shortness of breath or wheezing) Qty: 8.5 6RF Rx Instructions: Administer with spacer magnesium oxide 400 mg magnesium capsule 400 mg PO BID Qty: 60 5RF Linzess 290 mcg capsule 290 mcg PO QAM 30 Days Qty: 30 5RF scopolamine base 1 mg over 3 days patch 3 day 1 patch transdermal Q3D PRN Movantik 25 mg tablet 25 mg PO QAM Rx Instructions: must be taken on empty stomach; no food 1 hr after or 2-3 hrs before dose (DME) nebulizers Misc See Rx Instructions .Route Qty: 1 0RF Rx Instructions: nebulizer and accessories for Dx J44.9; Length of need lifetime Dashmini Aerosphere 160-9-4.8 mcg/actuation HFA aerosol inhaler 2 inh inhalation BID Qty: 10.7 3RF lisinopril 2.5 mg tablet See Rx Instructions .ROUTE .COMPLEX Qty: 30 5RF Dose Instruction: TAKE ONE TABLET BY MOUTH DAILY FOR blood pressure Rx Instructions: TAKE ONE TABLET BY MOUTH DAILY FOR blood pressure hydroxyzine HCl 50 mg tablet 50 mg PO TID PRN (Reason: dizziness or vertigo) Qty: 90 3RF pantoprazole 40 mg tablet,delayed release (DR/EC) 40 mg PO BID PRN (Reason: nausea and vomiting) Qty: 60 5RF mirtazapine [Remeron] 15 mg tablet 15 mg PO .hs Qty: 30 5RF ondansetron 4 mg tablet,disintegrating 4 mg PO Q6H PRN (Reason: nausea and vomiting) Qty: 90 1RF ipratropium-albuterol 0.5 mg-3 mg(2.5 mg base)/3 mL solution for nebulization 3 ml inhalation Q4H PRN (Reason: wheezing) Qty: 90 3RF metoclopramide HCl [Reglan] 10 mg tablet 10 mg PO Q6H PRN (Reason: nausea and vomiting) Qty: 120 5RF Rx Instructions: She can take it before meals and at bedtime 4 times a day. oxycodone 10 mg tablet 10 mg PO TID PRN (Reason: pain) 30 Days Qty: 90 0RF Discharge Orders: Discharge ED (Routine); Ordered 05/26/24 Ordered By: Pardeep Nazario Referrals: Stephani Mims MD [Primary Care Provider] - Patient Instructions: Potter Catheter Care, How to Change a Catheter Drainage Bag (DC), Opioid Safety, Pain Management Activity Restrictions/Additional Instructions: Take the antibiotics as prescribed. Take the other prescribed medications. Potter catheter in place, follow-up with your regular doctor. Return with any new or worsening symptoms. 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
[2024-05-26 20:40] LABS: Basophils % 0.5 %; Eosinophils # 0.1 10^3/uL (0.0-0.8); Eosinophils % 1.6 %; Hematocrit 51.4 % (36-47); Lymphocytes # 1.9 10^3/uL (0.8-4.8); Lymphocytes % 22.7 %; Mean Corpuscular HGB Conc 30.5 g/dL (30-55); Mean Corpuscular Hemoglobin 28.3 pg (27-33); Mean Corpuscular Volume 92.8 fl (85-98); Mean Platelet Volume 8.7 fL (7.4-10.4); Monocytes # 0.6 10^3/uL (0.2-0.9); Monocytes % 7.6 %; Neutrophils # 5.51 10^3/uL (1.8-7.7); Neutrophils % 67.4 %; Nucleated Red Blood Cells % 0 %; Platelet Count 213 10^3/cmm (157-399); Red Blood Count 5.54 10^6/uL (3.85-5.65); Red Cell Distribution Width 13.7 % (12.1-15.1); White Blood Count 8.18 10^3/uL (3.29-11.43)
[2024-05-26] MEDS: ondansetron 2 mg/ML SDV 2 mL 4 MG IVP (20:42)
[2024-05-26] MEDS: morphine 4 mg/mL SDV 1 mL IVP (20:45)
[2024-05-26] MEDS: methylPREDNISolone sod succ 125 mg/2 mL INJ IVP (20:45)
[2024-05-26] MEDS: sodium chloride 0.9% 1,000 ML 999 ML IV (20:46)
[2024-05-26 21:00] VITALS: BP 118/77; PULSE 80; O2SAT 93
[2024-05-26 21:09] LABS: Alanine Aminotransferase 10 U/L (0-33); Albumin Level 4.3 g/dL (3.5-5.2); Alkaline Phosphatase 165 U/L (35-105); Blood Urea Nitrogen 15 mg/dL (6-20); Calcium 9.3 mg/dL (8.5-10.5); Carbon Dioxide 19 mmol/L (22-29); Chloride 98 mmol/L (98-107); Creatinine Clr Calc Pharmacy 91.3631; Globulin 4.5 g/dL (1.3-4.6); Glomerular Filtration Rate 102.7 mL/min (90-130); Glucose 88 mg/dL (65-115); Osmolality Calculated 276 mOsm/kg (285-295); Sodium 133 mmol/L (136-145); Total Bilirubin 0.8 mg/dL (0.15-1.2); Total Protein 8.8 g/dL (6.6-8.7)
[2024-05-26 21:25] LABS: Anion Gap 20.3 (5-19); Aspartate Amino Transferase 21 U/L (0-32); Potassium 4.3 mmol/L (3.5-5.1)
[2024-05-26 21:30] VITALS: BP 118/73; PULSE 98; O2SAT 100
[2024-05-26 22:00] VITALS: BP 126/95; PULSE 88; O2SAT 98
[2024-05-26 22:02] LABS: Bacteria Urine None Seen /hpf; Squamous Epithelial Cell Urine 0-5 /hpf (0-5); WBC Urine 0-5 /hpf (0-5)
[2024-05-26 22:05] LABS: Bilirubin Urine Neg (Negative); Blood Urine Neg (Negative); Glucose Urine UA Norm (Normal); Ketones Urine Negative (Negative); Leukocyte Esterase Urine Negative (Negative); Nitrate Urine Negative (Negative); Protein Urine Neg (Negative); Urine Appearance Clear (CLEAR); Urine Color Dark Yellow (Yellow); Urobilinogen Urine Neg (Negative); pH Urine 5 (5-7)
[2024-05-26 22:17] VITALS: BP 126/95; PULSE 88; O2SAT 98
== END 2024-05-26 22:18 | disposition home or self-care (01) ==
PROVIDERS: Emergency Medicine; Emergency Provider Physician Assistant; PCP Family Medicine
DX: B02.9 Zoster without complications (principal); I10 Essential (primary) hypertension; F17.210 Nicotine dependence, cigarettes, uncomplicated
CPT/HCPCS: 51702; 80053; 81001; 85025; 96361; 96374; 96375; 99284; J2270; J2405; J2919; J7030

== ENCOUNTER → 2024-05-28 09:18 | Outpatient (BNVA) | payer OTHER, SELFPAY | PROVIDERS: PCP Family Medicine; Visit Provider Family Medicine | DX: R82.90 Unspecified abnormal findings in urine (principal); R33.9 Retention of urine, unspecified | CPT/HCPCS: 87086 ==

== ENCOUNTER → 2024-06-04 15:55 | Outpatient (BNVA) | payer OTHER, SELFPAY | PROVIDERS: PCP Family Medicine; Visit Provider Family Medicine | DX: L03.317 Cellulitis of buttock (principal) | CPT/HCPCS: 87070 ==

== ENCOUNTER 2024-06-18 20:11 | Emergency (ER) | payer OTHER, MEDICAID, SELFPAY ==
[2024-06-18 20:30] VITALS: BP 124/94; PULSE 108; RESP 16; TEMP 36.9; O2SAT 98; BMI 17.7
--- NOTE | 2024-06-18 20:34 | ED_ITS ---
HPI - Female Genitourinary 2 General: Chief complaint: Urogenital-Female Stated complaint: can not urinate , just had cath removed 7 days ago Time Seen by Provider: 06/18/24 20:13 Source: patient Mode of arrival: ambulatory Limitations: no limitations History of Present Illness: 58-year-old female states she has been h aving difficulty urinating. States she did recently and had a Potter placed her PCP removed it a week ago and she been having a hard time urinating since and has not been able to urinate today she denies any severe pain denies any vomiting or diarrhea. Associated symptoms: Deny abdominal pain, headache(s) or nausea Related Data Home Medications ?Medication ?Instructions ?Recorded ?Confirmed naloxegol 25 mg tablet (Movantik) 25 mg PO QAM 4 06/11/24 scopolamine base 1 mg over 3 days 1 patch transdermal Q3D PRN 05/12/23 06/11/24 transdermal patch Previous Rx's ?Medication ?Instructions ?Recorded nebulizers #1 ea 12/04/21 magnesium oxide 400 mg PO BID constipation # 60 caps 01/15/22 linaclotide 290 mcg capsule 290 mcg PO QAM 30 days #30 caps 01/08/23 (Linzess) budesonide 160 mcg-glycopyr 9 2 inh inhalation BID #10 .7 grams 04/15/23 mcg-formot 4.8 mcg/actuation HFA inhaler (Breztri Aerosphere) albuterol sulfate 90 mcg/actuation 2 puff inhalation Q 4H PRN 07/14/23 aerosol inhaler shortness of breath or wheez ing #8.5 grams lisinopril 2.5 mg tablet See Rx Instructions .Route 0 09/16/23 .COMPLEX #30 tabs hydroxyzine HCl 50 mg tablet 50 mg PO TID PRN dizzines s or 09/26/23 vertigo #90 tabs pantoprazole 40 mg tablet,delayed 40 mg PO BID PRN snehal sea and 10/07/23 release vomiting #60 tabs mirtazapine 15 mg tablet (Remeron) 15 mg PO .hs #30 ta bs 11/27/23 ondansetron 4 mg disintegrating 4 mg PO Q6H PRN nausea and 01/22/24 tablet vomiting #90 tabs ipratropium 0.5 mg-albuterol 3 mg 3 ml inhalation Q4H PRN wheezing 02/16/24 (2.5 mg base)/3 mL nebulization #90 mL soln metoclopramide HCl 10 mg tablet 10 mg PO Q6H PRN nause a and 04/22/24 (Reglan) vomiting #120 tabs gabapentin 100 mg capsule 100 mg PO TID #60 caps 05/26 prednisone 20 mg tablet 60 mg (3 x 20 mg) PO DAILY # 20 tabs 05/26/24 mupirocin 2 % topical ointment 1 applic topical BID #5 0 grams 06/04/24 (Centany) cephalexin 500 mg capsule 500 mg PO TID 7 days #21 cap s 06/18/24 oxycodone 10 mg tablet 10 mg PO TID PRN pain 30 day s #90 06/18/24 tabs Allergies Allergy/AdvReac Type Severity Reaction Status Date / Time No Known Allergies Allergy Verified 06/11/24 15:39 Review of Systems 2 Const: Denies: fever(s), chills, body aches or change in appetite ENMT: Denies: throat pain or dental pain Card: Denies: chest pain Resp: Denies: dyspnea GI: Denies: abdominal pain, nausea, vomiting or diarrhea : Reports: difficulty voiding Musc: Denies: neck pain or back pain Skin/Breast: Denies: rash Neuro: Denies: headache(s) PFSH ED 2 PFSH: Medical History 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; PET done 2021 and 02/02 show lesions--read as treated mets but no hx of cancer--referred to oncology who has now made dx of Paget's disease of bone and requesting referral to endo Pain management contract signed signed 03.18.24 but had been getting pain meds already Encounter for chronic pain management legacy patient; on oxycodone Abnormal positron emission tomography (PET) scan PET done 2021 and 02/02 show lesions--read as treated mets but no hx of cancer--referred to oncology who has now made dx of Paget's disease of bone Incidental lung nodule last CT 02.01--micronodule only now; Abnormal alkaline phosphatase test bone portion Chronic headaches Fatigue Unexplained weight loss Current smoker Disability examination Hypertension Avascular necrosis of bones of both hips Gastritis GERD (gastroesophageal reflux disease) Anxiety and depression Mid back pain, chronic 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 Surgical History History of tonsillectomy History of hysterectomy w/ BSO due to endometriosis; had 7 miscarriages Status post colonoscopy 6.7.23 Family History Father Aortic aneurysm Other CAD (coronary artery disease) Social History Smoking and tobacco/nicotine status: current every day tobacco/nicotine user cigarettes Packs smoked per day: 1 Years cigarettes smoked: 23 Alcohol intake: never Substance/Drug Use: current Adopted: Yes (by grandparents) Lives independently: Yes Household members: none Housing: House Marital status: Legally Number of children: 0 Number of grandchildren: 0 Highest education level completed: Some College, No Degree service: No Current occupational status: disabled and other 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 Previous occupational history: had worked at [employer] Physical Exam 2 Const: COMMON NORMALS: no acute distress, patient oriented x3 and healthy appearing HENMT: COMMON NORMALS: normocephalic and atraumatic HEAD & SCALP: n ormocephalic and atraumatic Eye: COMMON NORMALS: conjunctivae normal CONJUNCTIVA: Yes conjunctivae normal Neck/C-Spine: COMMON NORMALS: full ROM and supple Chest: COMMONS NORMALS: normal inspection of the chest Resp: COMMON NORMALS: normal respiratory effort Cardio: COMMON NORMALS: regular rate RATE: regular rate GI: COMMON NORMALS: Normal to inspection, nondistended, normoactive bowel sounds present, Soft to palpation, non-tender and no masses PALPATION: Yes Soft to palpation Extremity: COMMON NORMALS: normal to inspection and full ROM Neuro: COMMON NORMALS: patient oriented x3, moves all extremities and no focal motor deficits Psych: COMMON NORMALS: mental status grossly normal, Normal thought process present and cooperative THOUGHT PROCESS: Normal thought process present Skin: COMMON NORMALS: no rashes or lesions noted and no wounds GENERAL SKIN EXAM: no rashes or lesions noted Course 2 Vital Signs: Vital signs: Vital Signs Temperature 98.5 F 06/18/24 20:30 Pulse Rate 106 H 06/18/24 22:00 Respiratory Rate 16 06/18/24 22:00 Blood Pressure 126/79 06/18/24 22:00 Pulse Oximetry 94 06/18/24 22:00 Oxygen Delivery Me thod Room Air 06/18/24 22:00 MDM - Female Medical Decision Making Patient presents here with urinary retention along with acute urinary tract infection. Kidney functions normal we will start antibiotics will leave Potter in place she has to follow-up with PCP in 4 to 7 days. Medical Records I reviewed the patient's medical records. Lab Data I reviewed the patient's lab results. 06/18/24 20:58 06/18/24 20:58 Laboratory Results WBC 6.84 10^3/uL (3.29-11.43) 06/18/24 20:58 RBC 4.81 10^6/uL (3.85-5.65) 06/18/24 20:58 Hgb 14.00 g/dL (11.27-16.99) 06/18/24 20:58 Hct 44.6 % (36-47) 06/18/24 20:58 MCV 92.7 fl (85-98) 06/18/24 20:58 MCH 29.1 pg (27-33) 06/18/24 20:58 MCHC 31.4 g/dL (30-55) 06/18/24 20:58 RDW 14.8 % (12.1-15.1) 06/18/24 20:58 Plt Count 176 10^3/cmm (157-399) 06/18/24 20:58 MPV 9.1 fL (7.4-10.4) 06/18/24 20:58 Neut % (Auto) 68.8 % 06/18/24 20:58 Lymph % (Auto) 20.8 % 06/18/24 20:58 Hamilton % (Auto) 8.5 % 06/18/24 20:58 Eos % (Auto) 1.5 % 06/18/24 20:58 Baso % (Auto) 0.3 % 06/18/24 20:58 Neut # (Auto) 4.71 10^3/uL (1.8-7.7) 06/18/24 20:58 Lymph # (Auto) 1.4 10^3/uL (0.8-4.8) 06/18/24 20:58 Hamilton # (Auto) 0.6 10^3/uL (0.2-0.9) 06/18/24 20:58 Eos # (Auto) 0.1 10^3/uL (0.0-0.8) 06/18/24 20:58 Baso # (Auto) 0.0 10^3/uL (0.0-0.1) 06/18/24 20:58 Nucleated RBC % (auto) 0 % 06/18/24 20:58 Nucleated RBCs # 0.0 /100WBC 06/18/24 20:58 Sodium 140 mmol/L (136-145) 06/18/24 20:58 Potassium 4.0 mmol/L (3.5-5.1) 06/18/24 20:58 Chloride 105 mmol/L (98-107) 06/18/24 20:58 Carbon Dioxide 25 mmol/L (22-29) 06/18/24 20:58 Anion Gap 14.0 (5-19) 06/18/24 20:58 BUN 16 mg/dL (6-20) 06/18/24 20:58 Creatinine 0.6 mg/dL (0.5-0.9) 06/18/24 20:58 GFR Calculation 102.7 mL/min (90-130) 06/18/24 20:58 Glucose 103 mg/dL (65-115) 06/18/24 20:58 Calculated Osmolality 291 mOsm/kg (285-295) 06/18/24 20:58 Calcium 9.4 mg/dL (8.5-10.5) 06/18/24 20:58 Urine Color Yellow (Yellow) 06/18/24 21:21 Urine Appearance Clear (CLEAR) 06/18/24 21:21 Urine pH 5.5 (5-7) 06/18/24 21:21 Ur Specific [place] 1.012 (1.005-1.030) 06/18/24 21:21 Urine Protein Negative (Negative) 06/18/24 21:21 Urine Glucose (UA) Negative (Normal) 06/18/24 21:21 Urine Ketones Negative (Negative) 06/18/24 21:21 Urine Blood Negative (Negative) 06/18/24 21: Urine Nitrate Positive (Negative) A 06/18/24 21:21 Urine Bilirubin Negative (Negative) 06/18/24 21:21 Urine Urobilinogen 1.0 mg/dL (Negative) 06/18/24 21:21 Ur Leukocyte Esterase Trace (Negative) A 06/18/24 21:21 Urine RBC 0-2 /hpf (0-2) 06/18/24 21:21 Urine WBC 11-20 /hpf (0-5) H 06/18/24 21:21 Ur Squamous Epith Cells 0-5 /hpf (0-5) 06/18/24 21:21 Amorphous Sediment Not Reportable 06/18/24 21:21 Urine Bacteria 4+ /hpf (NONE) H 06/18/24 21:21 Hyaline Casts 0.81 /lpf 06/18/24 21:21 No radiology studies performed this visit Discharge Plan Discharge Patient Disposition: Home Clinical Impression: Urinary tract infection, Acute urinary retention Condition: Stable Prescriptions: New cephalexin 500 mg capsule 500 mg PO TID 7 Days Qty: 21 0RF No Action albuterol sulfate 90 mcg/actuation HFA aerosol inhaler 2 puff inhalation Q4H PRN (Reason: shortness of breath or wheezing) Qty: 8.5 6RF Rx Instructions: Administer with spacer magnesium oxide 400 mg magnesium capsule 400 mg PO BID Qty: 60 5RF Linzess 290 mcg capsule 290 mcg PO QAM 30 Days Qty: 30 5RF scopolamine base 1 mg over 3 days patch 3 day 1 patch transdermal Q3D PRN Movantik 25 mg tablet 25 mg PO QAM Rx Instructions: must be taken on empty stomach; no food 1 hr after or 2-3 hrs before dose mupirocin [Centany] 2 % ointment 1 applic topical BID Qty: 50 0RF (DME) nebulizers [facility] See Rx Instructions .Route Qty: 1 0RF Rx Instructions: nebulizer and accessories for Dx J44.9; Length of need lifetime Breztri Aerosphere 160-9-4.8 mcg/actuation HFA aerosol inhaler 2 inh inhalation BID Qty: 10.7 3RF lisinopril 2.5 mg tablet See Rx Instructions .ROUTE .COMPLEX Qty: 30 5RF Dose Instruction: TAKE ONE TABLET BY MOUTH DAILY FOR blood pressure Rx Instructions: TAKE ONE TABLET BY MOUTH DAILY FOR blood pressure hydroxyzine HCl 50 mg tablet 50 mg PO TID PRN (Reason: dizziness or vertigo) Qty: 90 3RF pantoprazole 40 mg tablet,delayed release (DR/EC) 40 mg PO BID PRN (Reason: nausea and vomiting) Qty: 60 5RF mirtazapine [Remeron] 15 mg tablet 15 mg PO .hs Qty: 30 5RF ondansetron 4 mg tablet,disintegrating 4 mg PO Q6H PRN (Reason: nausea and vomiting) Qty: 90 1RF ipratropium-albuterol 0.5 mg-3 mg(2.5 mg base)/3 mL solution for nebulization 3 ml inhalation Q4H PRN (Reason: wheezing) Qty: 90 3RF metoclopramide HCl [Reglan] 10 mg tablet 10 mg PO Q6H PRN (Reason: nausea and vomiting) Qty: 120 5RF Rx Instructions: She can take it before meals and at bedtime 4 times a day. oxycodone 10 mg tablet 10 mg PO TID PRN (Reason: pain) 30 Days Qty: 90 0RF prednisone 20 mg tablet 60 mg PO DAILY Qty: 20 0RF Rx Instructions: 3 tabs (60 mg) x 3 days. 2 tabs (40 mg) x 3 days. 1 tab (20 mg) x 3 days. 1/2 tab (10 mg) x 4 days gabapentin 100 mg capsule 100 mg PO TID Qty: 60 0RF Rx Instructions: Start with 1 tab 3 times daily. You may increase up to 3-4 tabs (300 to 400 mg) 3 times a day. Discharge Orders: Discharge ED (Routine); Ordered 06/18/24 Ordered By: Sarah Dasilva Referrals: Stephani Mims MD [Primary Care Provider, Family Practice] - 4-7 days Discharge Diet: Advance as tolerated Discharge Activity: Resume usual activity Patient Instructions: Urinary Tract Infection in Women (ED), Chronic Urinary Retention in Women (ED) Print Language: Gabonese Coding Level of Care Code ED Special Education Paraprofessional for Deejay Clark
[2024-06-18 21:06] LABS: Basophils % 0.3 %; Eosinophils # 0.1 10^3/uL (0.0-0.8); Eosinophils % 1.5 %; Hematocrit 44.6 % (36-47); Lymphocytes # 1.4 10^3/uL (0.8-4.8); Lymphocytes % 20.8 %; Mean Corpuscular HGB Conc 31.4 g/dL (30-55); Mean Corpuscular Hemoglobin 29.1 pg (27-33); Mean Corpuscular Volume 92.7 fl (85-98); Mean Platelet Volume 9.1 fL (7.4-10.4); Monocytes # 0.6 10^3/uL (0.2-0.9); Monocytes % 8.5 %; Neutrophils # 4.71 10^3/uL (1.8-7.7); Neutrophils % 68.8 %; Nucleated Red Blood Cells % 0 %; Platelet Count 176 10^3/cmm (157-399); Red Blood Count 4.81 10^6/uL (3.85-5.65); Red Cell Distribution Width 14.8 % (12.1-15.1); White Blood Count 6.84 10^3/uL (3.29-11.43)
[2024-06-18 21:23] LABS: Blood Urea Nitrogen 16 mg/dL (6-20); Calcium 9.4 mg/dL (8.5-10.5); Carbon Dioxide 25 mmol/L (22-29); Chloride 105 mmol/L (98-107); Creatinine Clr Calc Pharmacy 89.6064; Glomerular Filtration Rate 102.7 mL/min (90-130); Glucose 103 mg/dL (65-115); Osmolality Calculated 291 mOsm/kg (285-295); Sodium 140 mmol/L (136-145)
[2024-06-18 21:30] LABS: Bilirubin Urine Negative (Negative); Blood Urine Negative (Negative); Glucose Urine UA Negative (Normal); Ketones Urine Negative (Negative); Leukocyte Esterase Urine Trace (Negative); Nitrate Urine Positive (Negative); Protein Urine Negative (Negative); Specific Gravity, Urine 1.012 (1.005-1.030); Urine Appearance Clear (CLEAR); Urine Color Yellow (Yellow); pH Urine 5.5 (5-7)
[2024-06-18 21:32] LABS: Add Urine Microscopic? YES; Bacteria Urine 4+ /hpf; Hyaline Casts Urine 0.81 /lpf; RBC Urine 0-2 /hpf (0-2); Squamous Epithelial Cell Urine 0-5 /hpf (0-5)
[2024-06-18 21:37] VITALS: BP 122/74; PULSE 103; RESP 16; O2SAT 94
[2024-06-18 21:53] LABS: Add Urine Culture? Yes
[2024-06-18 22:00] VITALS: BP 126/79; PULSE 106; RESP 16; O2SAT 94
[2024-06-18] MEDS: cefTRIAXone 1,000 MG in water for injection-sterile 2.1 ML 2.1 MG IM (22:10)
== END 2024-06-18 22:39 | disposition home or self-care (01) ==
PROVIDERS: Emergency Provider Emergency Medicine; PCP Family Medicine
DX: N39.0 Urinary tract infection, site not specified (principal); R33.9 Retention of urine, unspecified; F17.210 Nicotine dependence, cigarettes, uncomplicated; I10 Essential (primary) hypertension
CPT/HCPCS: 36415; 51702; 80048; 81001; 85025; 87077; 87086; 87186; 96372; 99284; J0696

== ENCOUNTER 2024-07-14 11:54 | Oncology outpatient (recurring) (ONCR) | payer OTHER, MEDICAID, SELFPAY ==
[2024-07-14 12:57] LABS: Basophils % 0.3 %; Eosinophils # 0.2 10^3/uL (0.0-0.8); Eosinophils % 3.7 %; Hematocrit 45.5 % (36-47); Lymphocytes # 1.3 10^3/uL (0.8-4.8); Lymphocytes % 22.1 %; Mean Corpuscular Volume 93.6 fl (85-98); Mean Platelet Volume 9.7 fL (7.4-10.4); Monocytes # 0.5 10^3/uL (0.2-0.9); Monocytes % 8.5 %; Neutrophils # 3.82 10^3/uL (1.8-7.7); Neutrophils % 65.2 %; Nucleated Red Blood Cells % 0 %; Platelet Count 221 10^3/cmm (157-399); Red Blood Count 4.86 10^6/uL (3.85-5.65); Red Cell Distribution Width 14.6 % (12.1-15.1); White Blood Count 5.87 10^3/uL (3.29-11.43)
[2024-07-14 13:03] LABS: Erythrocyte Sedimentation Rate 4 mm/hr (0-15)
[2024-07-14 13:19] LABS: Alanine Aminotransferase 11 U/L (0-33); Albumin Level 4.1 g/dL (3.5-5.2); Alkaline Phosphatase 197 U/L (35-105); Anion Gap 15.3 (5-19); Aspartate Amino Transferase 18 U/L (0-32); Blood Urea Nitrogen 15 mg/dL (6-20); Calcium 9.1 mg/dL (8.5-10.5); Carbon Dioxide 25 mmol/L (22-29); Chloride 104 mmol/L (98-107); Creatinine Clr Calc Pharmacy 70.7179; Globulin 3.1 g/dL (1.3-4.6); Glomerular Filtration Rate 73.7 mL/min (90-130); Glucose 91 mg/dL (65-115); Osmolality Calculated 290 mOsm/kg (285-295); Phosphorus 3.3 mg/dL (2.5-4.5); Potassium 4.3 mmol/L (3.5-5.1); Sodium 140 mmol/L (136-145); Total Bilirubin 0.4 mg/dL (0.15-1.2); Total Protein 7.2 g/dL (6.6-8.7); Uric Acid 5.3 mg/dL (2.4-5.7)
[2024-07-14 13:45] LABS: Calcium 9.1 mg/dL (8.5-10.5)
[2024-07-14 13:52] LABS: Parathyroid Hormone 57.7 pg/mL (15-65)
[2024-07-14 14:00] LABS: 25 Hydroxy Vitamin D 22 ng/mL (30-100)
[2024-07-16 15:19] LABS: Alkaline Phosphatase, Bone Spe 45.1 mcg/L (5.6-29.0)
== END 2024-08-09 23:59 | disposition home or self-care (01) ==
PROVIDERS: Internal Medicine; PCP Family Medicine; Visit Provider Internal Medicine
DX: G89.29 Other chronic pain (principal); B02.9 Zoster without complications; R33.9 Retention of urine, unspecified; M88.9 Osteitis deformans of unspecified bone
CPT/HCPCS: 36415; 80053; 82306; 82310; 83970; 84075; 84100; 84550; 85025; 85651; 86140

== ENCOUNTER 2024-09-02 13:42 | Oncology outpatient (recurring) (ONCR) | payer OTHER, MEDICAID, SELFPAY ==
--- NOTE | 2024-09-02 14:00 | MM_ITS ---
WS: [id number] BILATERAL SCREENING DIGITAL TOMOSYNTHESIS MAMMOGRAM WITH CAD HISTORY: screening COMPARISON: 07/27/2021 Bilateral CC and MLO views with tomosynthesis and synthetic mammography submitted. Computer aided detection analyzed. Breast composition: There are scattered areas of fibroglandular density. No suspicious masses, microcalcifications or architectural distortion. MM/MM scr BI tomosynthesis [id number] IMPRESSION: BI-RADS: 1 - Negative. FOLLOW UP: 1 Year Follow-up
== END 2024-09-09 23:59 | disposition home or self-care (01) ==
LOC: ONCMED 13:43
PROVIDERS: Internal Medicine; PCP Family Medicine; Visit Provider Internal Medicine
DX: G89.29 Other chronic pain (principal); B02.9 Zoster without complications; R33.9 Retention of urine, unspecified; M88.9 Osteitis deformans of unspecified bone; Z12.39 Encounter for other screening for malignant neoplasm of breast
CPT/HCPCS: 36415; 77063; 77067; 82306

== ENCOUNTER 2024-09-21 22:03 | Emergency (ER) | payer OTHER, MEDICAID, SELFPAY ==
[2024-09-21 22:15] VITALS: BP 157/97; PULSE 105; RESP 18; TEMP 36.5; O2SAT 97
--- NOTE | 2024-09-21 22:30 | ED_ITS ---
HPI - Animal Bite 2 General: Chief Complaint: Animal Bite Stated Complaint: Snake Bite Time Seen by Provider: 09/21/24 22:27 History of Present Illness: 59-year-old female who presents emergenc y room by ambulance with a suspected snakebite. She was out by the [employer] with no shoes on and felt a sudden sharp pain in her feet. She has 2 puncture wounds on the lateral side of her left foot. She has some swelling and pain. Some bruising. Snake was not seen but this does look quite suspicious for a snake bite. Related Data Home Medications ?Medication ?Instructions ?Recorded ?Confirmed naloxegol 25 mg tablet (Movantik) 25 mg PO QAM 4 08/16/24 valacyclovir 1 gram tablet 1,000 mg PO Q8H 08/16/24 (Valtrex) Previous Rx's ?Medication ?Instructions ?Recorded nebulizers #1 ea 12/04/21 magnesium oxide 400 mg PO BID constipation # 60 caps 01/15/22 linaclotide 290 mcg capsule 290 mcg PO QAM 30 days #30 caps 01/08/23 (Linzess) albuterol sulfate 90 mcg/actuation 2 puff inhalation Q 4H PRN 07/14/23 aerosol inhaler shortness of breath or wheez ing #8.5 grams hydroxyzine HCl 50 mg tablet 50 mg PO TID PRN dizzines s or 09/26/23 vertigo #90 tabs mirtazapine 15 mg tablet (Remeron) 15 mg PO .hs #30 ta bs 11/27/23 ondansetron 4 mg disintegrating 4 mg PO Q6H PRN nausea and 01/22/24 tablet vomiting #90 tabs metoclopramide HCl 10 mg tablet 10 mg PO Q6H PRN nause a and 04/22/24 (Reglan) vomiting #120 tabs mupirocin 2 % topical ointment 1 applic topical BID #5 0 grams 06/04/24 (Centany) budesonide 160 mcg-glycopyr 9 2 inh inhalation BID #10 .7 grams 06/30/24 mcg-formot 4.8 mcg/actuation HFA inhaler (Breztri Aerosphere) lisinopril 2.5 mg tablet See Rx Instructions .Route 0 07/22/24 .COMPLEX #30 tabs pantoprazole 40 mg tablet,delayed 40 mg PO BID PRN snehal sea and 07/22/24 release vomiting #60 tabs ciprofloxacin HCl 500 mg tablet 500 mg PO BID 7 days # 14 tabs 08/16/24 (Cipro) cholecalciferol (vitamin D3) 50 See Rx Instructions .R oute 09/10/24 mcg (2,000 unit) capsule (Vitamin .COMPLEX #30 caps D3) ipratropium 0.5 mg-albuterol 3 mg 3 ml inhalation Q4H PRN wheezing 09/10/24 (2.5 mg base)/3 mL nebulization #90 mL soln gabapentin 300 mg capsule 300 mg PO .qpm #30 caps /11/04 oxycodone 10 mg tablet 10 mg PO TID PRN pain 30 day s #90 09/18/24 tabs hydrocodone 5 mg-acetaminophen 325 1 tab PO Q8H PRN pa in #10 tabs 09/22/24 mg tablet Allergies Allergy/AdvReac Type Severity Reaction Status Date / Time No Known Allergies Allergy Verified 09/21/24 22:20 Review of Systems 2 Narrative: Constitutional symptoms: Negative except as documented in HPI. Skin symptoms: Negative except as documented in HPI. Eye symptoms: Negative except as documented in HPI. ENMT symptoms: Negative except as documented in HPI. Respiratory symptoms: Negative except as documented in HPI. Cardiovascular symptoms: Negative except as documented in HPI. Gastrointestinal symptoms: Negative except as documented in HPI. Genitourinary symptoms: Negative except as documented in HPI. Musculoskeletal symptoms: Negative except as documented in HPI. Neurologic symptoms: Negative except as documented in HPI. Psychiatric symptoms: Negative except as documented in HPI. Endocrine symptoms: Negative except as documented in HPI. PFSH ED 2 PFSH: Medical History (Updated 09/22/24 @ 00:11 by Kriss Poon MD) Post herpetic neuralgia Screening for lung cancer last CT 02.03.24 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; PET done 2021 and 02/02 show lesions--read as treated mets but no hx of cancer--referred to oncology who has now made dx of Paget's disease of bone and requesting referral to endo Pain management contract signed signed 2.08.04 but had been getting pain meds already Encounter for chronic pain management legacy patient; on oxycodone Abnormal positron emission tomography (PET) scan PET done 2021 and 02/02 show lesions--read as treated mets but no hx of cancer--referred to oncology who has now made dx of Paget's disease of bone Incidental lung nodule last CT 02.01--micronodule only now; Abnormal alkaline phosphatase test bone portion Chronic headaches Fatigue Unexplained weight loss Current smoker Hypertension Avascular necrosis of bones of both hips Gastritis GERD (gastroesophageal reflux disease) Anxiety and depression Mid back pain, chronic 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 Surgical History History of tonsillectomy History of hysterectomy w/ BSO due to endometriosis; had 7 miscarriages Status post colonoscopy 6.7.23 Family History Father Aortic aneurysm Other CAD (coronary artery disease) Social History Smoking and tobacco/nicotine status: current every day tobacco/nicotine user cigarettes Packs smoked per day: 1 Years cigarettes smoked: 23 Alcohol intake: never Substance/Drug Use: current Adopted: Yes (by grandparents) Lives independently: Yes Household members: none Housing: House Marital status: Legally Number of children: 0 Number of grandchildren: 0 Highest education level completed: Some College, No Degree service: No Current occupational status: disabled and other 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 Skin: warm and dry. There appears to be 1 puncture wound after cleaning it. There is some redness and swelling on the lateral side of the foot stretching about mcfp on the dorsum of the foot. Neurovascularly intact Head: Normocephalic Neck: Trachea midline Eye: Extraocular movements are intact. Ears, nose, mouth and throat: Oral mucosa moist Respiratory: Respirations are non-labored Musculoskeletal: Normal ROM Gastrointestinal: Abdomen does not appear distended Neurological: Alert and oriented, No focal neurological deficit observed. Psychiatric: Cooperative, appropriate mood & affect. Course 2 Vital Signs: Vital signs: Vital Signs Temperature 97.7 F 09/21/24 22:15 Pulse Rate 109 H 09/21/24 22:38 Respiratory Rate 14 09/21/24 22:55 Blood Pressure 152/111 09/21/24 22:38 Pulse Oximetry 94 09/21/24 22:55 Oxygen Delivery Me thod Room Air 09/21/24 22:38 MDM - Animal Bite Medical Decision Making Medical decision making: Differential diagnosis including but not limited to and based on the above HPI, review of systems and physical exam: Concern for systemic effects so lab work is being ordered. Currently exam does not warrant [employer]. Orders placed to evaluate differential diagnosis based on the above differential, HPI and physical exam Lab Review: Laboratory results were reviewed and interpreted by myself the emergency room physician. Lab work is fairly unremarkable. Mild leukocytosis. No anemia. No renal failure. Fibrinogen is negative. Coags are normal. Liver enzymes are normal. I reviewed the patient's medical record. Reexamination: Minimal swelling and bruising of the foot. No altered mental status. No focal motor sepsis. No increased work of breathing. Assessment and plan: Snakebite ?IV morphine and Zofran in the emergency room - Discharged home - Discussed plan with patient. Answered any questions. - Evaluation and treatment of this problem were appropriate in the emergency setting. Lab Data 09/21/24 23:05 09/21/24 23:39 Laboratory Results WBC 14.11 10^3/uL (3.29-11.43) H 09/21/24 23:05 RBC 5.65 10^6/uL (3.85-5.65) 09/21/24 23:05 Hgb 16.50 g/dL (11.27-16.99) 09/21/24 23:05 Hct 50.8 % (36-47) H 09/21/24 23:05 MCV 89.9 fl (85-98) 09/21/24 23:05 MCH 29.2 pg (27-33) 09/21/24 23:05 MCHC 32.5 g/dL (30-55) 09/21/24 23:05 RDW 14.0 % (12.1-15.1) 09/21/24 23:05 Plt Count 183 10^3/cmm (157-399) 09/21/24 23:05 MPV 10.3 fL (7.4-10.4) 09/21/24 23:05 Neut % (Auto) 88.3 % 09/21/24 23:05 Lymph % (Auto) 6.6 % 09/21/24 23:05 [place] % (Auto) 4.3 % 09/21/24 23:05 Eos % (Auto) 0.3 % 09/21/24 23:05 Baso % (Auto) 0.2 % 09/21/24 23:05 Neut # (Auto) 12.47 10^3/uL (1.8-7.7) H 09/21/24 23:05 Lymph # (Auto) 0.9 10^3/uL (0.8-4.8) 09/21/24 23:05 [place] # (Auto) 0.6 10^3/uL (0.2-0.9) 09/21/24 23:05 Eos # (Auto) 0.0 10^3/uL (0.0-0.8) 09/21/24 23:05 Baso # (Auto) 0.0 10^3/uL (0.0-0.1) 09/21/24 23:05 Nucleated RBC % (auto) 0 % 09/21/24 23:05 Nucleated RBCs # 0.0 /100WBC 09/21/24 23:05 PT 14.00 SECONDS (12.1-14.9) 09/21/24 23:39 INR 1.01 (0.8-1.2) 09/21/24 23:39 APTT 26.2 SECONDS (23.9-36.7) 09/21/24 23:39 Fibrinogen 344 mg/dL (174-498) 09/21/24 23:39 Sodium 140 mmol/L (136-145) 09/21/24 23:39 Potassium 3.9 mmol/L (3.5-5.1) 09/21/24 23:39 Chloride 105 mmol/L (98-107) 09/21/24 23:39 Carbon Dioxide 21 mmol/L (22-29) L 09/21/24 23:39 Anion Gap 17.9 (5-19) 09/21/24 23:39 BUN 15 mg/dL (6-20) 09/21/24 23:39 Creatinine 0.8 mg/dL (0.5-0.9) 09/21/24 23:39 GFR Calculation 73.4 mL/min (90-130) L 09/21/24 23:39 Glucose 171 mg/dL (65-115) H 09/21/24 23:39 Calculated Osmolality 295 mOsm/kg (285-295) 09/21/24 23:39 Lactic Acid 0.8 mmol/L (0.5-2.2) 09/21/24 23:39 Calcium 9.5 mg/dL (8.5-10.5) 09/21/24 23:39 Total Bilirubin 0.8 mg/dL (0.15-1.2) 09/21/24 23:39 AST 32 U/L (0-32) 09/21/24 23:39 ALT 24 U/L (0-33) 09/21/24 23:39 Alkaline Phosphatase 252 U/L (35-105) H 09/21/24 23:39 Total Protein 8.7 g/dL (6.6-8.7) 09/21/24 23:39 Albumin 4.8 g/dL (3.5-5.2) 09/21/24 23:39 Globulin 3.9 g/dL (1.3-4.6) 09/21/24 23:39 No radiology studies performed this visit Discharge Plan Discharge Patient Disposition: Home Clinical Impression: Venomous snake bite Condition: Stable Prescriptions: New hydrocodone-acetaminophen 5-325 mg tablet 1 tab PO Q8H PRN (Reason: pain) Qty: 10 0RF Rx Instructions: Take 1/2 to 1 tab every 8 hours as needed for pain No Action albuterol sulfate 90 mcg/actuation HFA aerosol inhaler 2 puff inhalation Q4H PRN (Reason: shortness of breath or wheezing) Qty: 8.5 6RF Rx Instructions: Administer with spacer valacyclovir [Valtrex] 1 gram tablet 1,000 mg PO Q8H ciprofloxacin HCl [Cipro] 500 mg tablet 500 mg PO BID 7 Days Qty: 14 0RF magnesium oxide 400 mg magnesium capsule 400 mg PO BID Qty: 60 5RF Linzess 290 mcg capsule 290 mcg PO QAM 30 Days Qty: 30 5RF Movantik 25 mg tablet 25 mg PO QAM Rx Instructions: must be taken on empty stomach; no food 1 hr after or 2-3 hrs before dose mupirocin [Centany] 2 % ointment 1 applic topical BID Qty: 50 0RF (DME) nebulizers Misc See Rx Instructions .Route Qty: 1 0RF Rx Instructions: nebulizer and accessories for Dx J44.9; Length of need lifetime hydroxyzine HCl 50 mg tablet 50 mg PO TID PRN (Reason: dizziness or vertigo) Qty: 90 3RF mirtazapine [Remeron] 15 mg tablet 15 mg PO .hs Qty: 30 5RF ondansetron 4 mg tablet,disintegrating 4 mg PO Q6H PRN (Reason: nausea and vomiting) Qty: 90 1RF metoclopramide HCl [Reglan] 10 mg tablet 10 mg PO Q6H PRN (Reason: nausea and vomiting) Qty: 120 5RF Rx Instructions: She can take it before meals and at bedtime 4 times a day. Breztri Aerosphere 160-9-4.8 mcg/actuation HFA aerosol inhaler 2 inh inhalation BID Qty: 10.7 3RF lisinopril 2.5 mg tablet See Rx Instructions .ROUTE .COMPLEX Qty: 30 5RF Dose Instruction: TAKE ONE TABLET BY MOUTH DAILY FOR blood pressure Rx Instructions: TAKE ONE TABLET BY MOUTH DAILY FOR blood pressure pantoprazole 40 mg tablet,delayed release (DR/EC) 40 mg PO BID PRN (Reason: nausea and vomiting) Qty: 60 5RF ipratropium-albuterol 0.5 mg-3 mg(2.5 mg base)/3 mL solution for nebulization 3 ml inhalation Q4H PRN (Reason: wheezing) Qty: 90 3RF cholecalciferol (vitamin D3) [Vitamin D3] 50 mcg (2,000 unit) capsule See Rx Instructions .ROUTE .COMPLEX Qty: 30 1RF Dose Instruction: TAKE ONE CAPSULE BY MOUTH DAILY Rx Instructions: TAKE ONE CAPSULE BY MOUTH DAILY oxycodone 10 mg tablet 10 mg PO TID PRN (Reason: pain) 30 Days Qty: 90 0RF gabapentin 300 mg capsule 300 mg PO .qpm Qty: 30 3RF Discharge Orders: Discharge ED (Routine); Ordered 09/22/24 Ordered By: Kriss Poon Referrals: Stephani Mims MD [Primary Care Provider, Family Practice] Discharge Diet: Usual diet Discharge Activity: Increase activity as tolerated Patient Instructions: Snake Bite (ED), Opioid Safety, Pain Management, Patient Portal & Jesse Instructions Activity Restrictions/Additional Instructions: Thank you for choosing [facility] for your healthcare needs today. You have been screened and evaluated and felt safe for discharge. Health conditions do change or evolve sometimes and as such it is important that you follow up with your Primary Doctor to be re checked, 3-5 days is a general good time frame for follow up. 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
[2024-09-21 22:38] VITALS: BP 152/111; PULSE 109; RESP 16; O2SAT 94
[2024-09-21 22:55] VITALS: RESP 14; O2SAT 94
[2024-09-21] MEDS: morphine 4 mg/mL SDV 1 mL IVP (22:55)
[2024-09-21] MEDS: ondansetron 2 mg/ML SDV 2 mL 4 MG IVP (22:55)
[2024-09-21 23:14] LABS: Hematocrit 50.8 % (36-47); Hemoglobin 16.50 g/dL (11.27-16.99); Mean Corpuscular HGB Conc 32.5 g/dL (30-55); Mean Corpuscular Hemoglobin 29.2 pg (27-33); Mean Corpuscular Volume 89.9 fl (85-98); Nucleated Red Blood Cells % 0 %; Platelet Count 183 10^3/cmm (157-399); Red Blood Count 5.65 10^6/uL (3.85-5.65); White Blood Count 14.11 10^3/uL (3.29-11.43)
[2024-09-22] LABS: INR 1.01 (0.8-1.2); Partial Thromboplastin Time 26.2 SECONDS (23.9-36.7); Prothrombin Time 14.00 SECONDS (12.1-14.9)
[2024-09-22 00:01] LABS: Fibrinogen 344 mg/dL (174-498)
[2024-09-22 00:06] LABS: Alanine Aminotransferase 24 U/L (0-33); Albumin Level 4.8 g/dL (3.5-5.2); Alkaline Phosphatase 252 U/L (35-105); Anion Gap 17.9 (5-19); Aspartate Amino Transferase 32 U/L (0-32); Blood Urea Nitrogen 15 mg/dL (6-20); Calcium 9.5 mg/dL (8.5-10.5); Carbon Dioxide 21 mmol/L (22-29); Chloride 105 mmol/L (98-107); Creatinine Clr Calc Pharmacy 67.6867; Globulin 3.9 g/dL (1.3-4.6); Glucose 171 mg/dL (65-115); Osmolality Calculated 295 mOsm/kg (285-295); Potassium 3.9 mmol/L (3.5-5.1); Sodium 140 mmol/L (136-145); Total Protein 8.7 g/dL (6.6-8.7)
[2024-09-22 00:07] LABS: Lactic Sepsis W/Reflex 0.8 mmol/L (0.5-2.2)
[2024-09-22 00:31] VITALS: BP 138/90; PULSE 95; RESP 14; O2SAT 98
[2024-09-22] MEDS: HYDROcodone-acetaminophen 10-325 mg Tablet 2 TAB PO (00:44)
== END 2024-09-22 00:45 | disposition home or self-care (01) ==
PROVIDERS: Emergency Provider Emergency Medicine; PCP Family Medicine
DX: T63.001A Toxic effect of unspecified snake venom, accidental (unintentional), initial encounter (principal); X58.XXXA Exposure to other specified factors, initial encounter; F17.210 Nicotine dependence, cigarettes, uncomplicated; I10 Essential (primary) hypertension
CPT/HCPCS: 36415; 80053; 83605; 85025; 85384; 85610; 85730; 96374; 96375; 99284; J2270; J2405; J9999

== ENCOUNTER 2024-10-13 13:03 | Oncology outpatient (recurring) (ONCR) | payer OTHER, MEDICAID, SELFPAY ==
[2024-10-13 13:29] LABS: Hematocrit 44.3 % (36-47); Hemoglobin 14.20 g/dL (11.27-16.99); Mean Corpuscular HGB Conc 32.1 g/dL (30-55); Mean Corpuscular Hemoglobin 29.3 pg (27-33); Mean Corpuscular Volume 91.3 fl (85-98); Nucleated Red Blood Cells % 0 %; Platelet Count 179 10^3/cmm (157-399); Red Blood Count 4.85 10^6/uL (3.85-5.65); White Blood Count 5.14 10^3/uL (3.29-11.43)
[2024-10-13 14:35] LABS: Alanine Aminotransferase 15 U/L (0-33); Albumin Level 4.5 g/dL (3.5-5.2); Alkaline Phosphatase 229 U/L (35-105); Anion Gap 15.6 (5-19); Aspartate Amino Transferase 22 U/L (0-32); Blood Urea Nitrogen 15 mg/dL (6-20); Calcium 9.3 mg/dL (8.5-10.5); Carbon Dioxide 23 mmol/L (22-29); Chloride 104 mmol/L (98-107); Creatinine Clr Calc Pharmacy 69.6384; Ferritin 56 ng/mL (15-150); Globulin 3.2 g/dL (1.3-4.6); Glucose 126 mg/dL (65-115); Iron 56 ug/dL (37-145); Osmolality Calculated 290 mOsm/kg (285-295); Potassium 3.6 mmol/L (3.5-5.1); Sodium 139 mmol/L (136-145); Total Iron Binding Capacity 324 mcg/dl; Total Protein 7.7 g/dL (6.6-8.7); Unsaturated Iron Binding 268 ug/dL (112-347); Vitamin B12 1939 pg/mL (232-1245)
== END 2024-11-09 23:59 | disposition home or self-care (01) ==
LOC: ONCMED 13:04
PROVIDERS: PCP Family Medicine; Visit Provider Internal Medicine
DX: E53.8 Deficiency of other specified B group vitamins (principal)
CPT/HCPCS: 36415; 80053; 82607; 82728; 83010; 83540; 83550; 83615; 85025; 85045

== ENCOUNTER → 2024-11-22 13:52 | Outpatient (BNVA) | payer OTHER, SELFPAY | PROVIDERS: PCP Family Medicine; Visit Provider Family Medicine | DX: R30.0 Dysuria (principal) | CPT/HCPCS: 87086 ==